=== PATIENT | female | born 1940 | race Caucasian/White ===

== ENCOUNTER 2018-04-06 08:40 | Inpatient (IN) | payer MEDICARE, BC ==
[2018-04-06 09:05] LABS: #Eosinphils 1.3 thou/uL (0.0-0.7); #Lymphocytes 0.6 thou/uL (1.20-3.40); #Monocytes 0.9 thou/uL (0.11-0.59); #Neutrophils 7.2 thou/uL (1.40-6.50); %Basophils 0.3 % (0.0-1.0); %Eosinophils 12.7 % (0.0-10.0); %Lymphocytes 5.6 % (21.0-51.0); %Monocytes 9.2 % (0.0-10.0); %Neutrophils 72.2 % (42.0-75.0); Mean Corpuscular HGB CONC 30.9 g/dL (32.0-36.0); Mean Corpuscular Hemoglobin 31.1 pg (27.0-31.0); Mean Platelet Volume 7.7 fL (7.4-10.4); Platelet Count 261 thou/uL (130-400); RBC Distribution Width 13.9 % (11.5-14.5); Red Blood Cell (RBC) Count 4.18 mill/uL (4.20-5.40); White Blood Cell (WBC) Count 9.9 thou/uL (4.8-10.8)
[2018-04-06] MEDS ORDERED: Dextrose 50% Abboject 50 ML SYRINGE ONE ×2 (09:08→10:55)
[2018-04-06] MEDS ORDERED: Calcium Chloride 1 GM/10 ML Abboject SYRINGE ONE (09:08)
[2018-04-06] MEDS ORDERED: Atropine Sulfate 1 mg/10 ml Syringe ONE (09:08)
[2018-04-06 09:11] LABS: INR-International Normal Ratio 0.9; PTT 24.7 SEC (22.9-36.1); Prothrombin Time 12.6 SEC (12.0-14.7)
[2018-04-06 09:25] LABS: Acetaminophen Less than 6.0 mcg/mL (10.0-30.0); Alcohol Less than 10 mg/dL (Less than 10); Salicylate Less than 8.0 mg/dL (15.0-30.0)
[2018-04-06 09:26] LABS: ALT (SGPT) 25 U/L (8-55); AST (SGOT) 25 U/L (5-34); Alkaline Phosphatase 142 U/L (40-150); Anion Gap 23 mmol/L (10-20); BUN (Urea Nitrogen) 81 mg/dL (9.8-20.1); Bilirubin, Total 0.6 mg/dL (0.2-1.2); CK (CPK) 91 U/L (29-168); Calc. Creatinine Clearance 0 mL/min (70-130); Calcium 8.4 mg/dL (7.8-10.44); Carbon Dioxide 20 mmol/L (23-31); Chloride 98 mmol/L (98-107); Estimated GFR-MDRD 4; Globulin 2.6 g/dL (2.4-3.5); Glucose 67 mg/dL (83-110); Lipase 16 U/L (8-78); Potassium 4.4 mmol/L (3.5-5.1); Protein, Total 5.6 g/dL (6.0-8.3); Sodium 137 mmol/L (136-145)
[2018-04-06] MEDS ORDERED: Naloxone HCl 2 mg/2 ml Syringe ONE (09:32)
[2018-04-06 09:40] LABS: Actual Bicarbonate (HCO3a) 22.4 mEq/L (22-28); Analyzer IN Cardio ER; Base Excess (BEa) -2.8 mEq/L (-2.0 to +3.0); CO2 Tension 40.3 mmHg (35.0-45.0); Calcium, Ionized 1.26 mmol/L (1.12-1.30); Carboxyhemoglobin (COHb) 1.7 gm% (0.0-3.0); Hemoglobin (Hb) 11.7 g/dL (12.0-16.0); O2 Tension (PaO2) 112.9 mmHg (> 70.0); pH, Arterial 7.36 (7.35-7.45)
[2018-04-06 09:41] LABS: ALV-art Gradient 64.885 (0-20); Puncture Site RB
[2018-04-06 09:47] LABS: CKMB 7.3 ng/mL (0-6.6)
[2018-04-06 10:10] LABS: Amphetamine Not Detected (NotDetected); Barbiturates Screen Not Detected (NotDetected); Benzodiazepine Screen Detected (NotDetected); Cocaine Metabolite Screen Not Detected (NotDetected); Medtox Control Line Valid? VALID (VALID); Medtox Reader # READER 4; Methadone Not Detected (NotDetected); Methamphetamine Not Detected (NotDetected); Opiate Screen Not Detected (NotDetected); Oxycodone Screen Not Detected (NotDetected); Phencyclidine (PCP) Not Detected (NotDetected); THC/Cannabinoid Screen Not Detected (NotDetected); Tricyclic Screen Not Detected (NotDetected)
--- NOTE | 2018-04-06 10:29 | CT ---
CT HEAD NONCONTRAST: HISTORY: Altered mental status. COMPARISON: 06/19/2006. FINDINGS: There is no evidence of acute intracranial hemorrhage or infarct. Diffuse cortical atrophy and chron ic ischemic small vessel disease have progressed since the 2006 exam. There is no mass effect or pennie ft of midline structures. Calcification in the arterial structures. Partial mucosal opacification o f the sphenoid sinus with cortical thickening consistent with acute upon chronic sphenoid sinusitis. IMPRESSION: No acute intracranial abnormalities are demonstrated. Findings were called to Dr. Crane in the emergency department by Dr. Larios at 0856 hours. CODE CR POS: [facility]
[2018-04-06] MEDS ORDERED: DOPamine 400 MG/D5W 250 ML 250 ML ONE (10:57)
[2018-04-06] MEDS ORDERED: DOBUTamine 500 mg/250 ml 250 ML ONE (11:00)
[2018-04-06 11:10] LABS: Bilirubin Negative (Negative); Blood, Urine Moderate (Negative); Clarity TURBID (Clear); Glucose, Urine (Dipstick) 250 mg/dL (Negative); Leukocyte Large (Negative); Nitrite Negative (Negative); Protein, Urine (Dipstick) 300 mg/dL (Neg-Trace); Specific Gravity, Urine 1.014 (1.002-1.036); Urobilinogen 0.2 mg/dL (0.2-1.0)
[2018-04-06 11:16] LABS: Squamous Epithelial 0-3 HPF (0-3)
[2018-04-06 11:17] LABS: Pathc Cast-AUWi Flag 9.74 (0-2.49)
--- NOTE | 2018-04-06 11:23 | RAD ---
PORTABLE AP CHEST XRAY: DATE: 04/06/2018. HISTORY: Altered mental status. The patient came in unresponsive per EMS. COMPARISON: 12/25/2011. FINDINGS: Two separate pacing pads overlie the right chest and centrally. Cardiac silhouette is magnified by p rojection but is enlarged. Pulmonary vasculature is within normal limits. Lungs are otherwise clear . Vascular calcification of the thoracic aorta. Vertebroplasty changes are seen involving upper lum bar vertebral body. No other interval change. IMPRESSION: 1. No acute cardiopulmonary process. 2. Cardiomegaly. POS: [facility]
[2018-04-06 11:27] LABS: Bacteria/HPF 4+ HPF (None Seen); Hyaline Casts/LPF NONE SEEN LPF (0-3 Hyaline); Other Casts/LPF None Seen LPF (0-3 Hyaline)
[2018-04-06] MEDS ORDERED: levETIRAcetam 500 MG/100 ML PREMIX BAG ONE (11:48)
[2018-04-06] MEDS ORDERED: Dextrose 5% in Water 1,000 ML IV PRN (12:14)
[2018-04-06] MEDS ORDERED: Acetaminophen 325 MG TAB PO PRN (12:14)
[2018-04-06] MEDS ORDERED: Senokot S 8.6-50 MG TAB PO PRN (12:14)
[2018-04-06] MEDS ORDERED: Dextrose 50% Abboject 50 ML SYRINGE SLOW IVP PRN (12:14)
[2018-04-06] MEDS ORDERED: Acetaminophen 650 MG Suppository PR PRN (12:14)
[2018-04-06] MEDS ORDERED: Guaifenesin DM 100-10/5 ML UDCUP PO PRN (12:14)
--- NOTE | 2018-04-06 13:23 | RAD ---
CHEST 1 VIEW: HISTORY: Central line placement. COMPARISON: Earlier exam on the same date. FINDINGS: The tip of a right internal jugular central venous catheter overlies the cavoatrial junction. No jennifer dence of pneumothorax. Cardiomegaly and other findings are stable. IMPRESSION: Right internal jugular central venous catheter is in good radiographic position. POS: [facility]
[2018-04-06 13:27] LABS: Troponin I 0.072 ng/mL (< 0.028)
--- NOTE | 2018-04-06 14:47 | HP ---
REASON FOR ADMISSION: Severe bradycardia, acute encephalopathy, demand ischemia, possible seizure, and urinary tract infection. HISTORY OF PRESENTING ILLNESS: Please note majority of this history is obtained by talking to the patient's , Mr. Silvestre Khan, as the patient is not conscious at present. She apparently was unresponsive this morning. The thought she slept well after a long time, but then when he tried to wake her up this morning around 8, the patient was not responding well. He summoned EMS, and the patient was brought here. She was found to be bradycardic with heart rates dipping into 40s. The patient initially was on transcutaneous pacer and now has been placed on dobutamine and dopamine. Per , the patient had two large strokes, which affected her cognition and short-term memory with no specific paralysis as such. This happened last month and was diagnosed at [facility]. She was at inpatient rehab for 21 days and was discharged yesterday. At the end of her rehab, the patient was able to walk 8 to 10 steps with a rolling walker. She was helping with transfers as well. The patient did not complain of any chest pain, palpitation, PND, or orthopnea. No complaints of fever, cough, or expectoration. No urinary frequency or urgency yesterday. PAST MEDICAL AND SURGICAL HISTORY: History of paroxysmal atrial fibrillation; end-stage renal disease, on peritoneal dialysis from last one and half years; diabetes mellitus, which is insulin dependent from last 38 years; prior stress test was negative; history of CVA x2 last month; dyslipidemia; hypertension; cataract surgery; hypothyroidism; right femur fracture with repair; kyphoplasty for vertebral fractures; and thyroidectomy. CURRENT MEDICATIONS: 1. Xanax 1 mg p.o. three times daily p.r.n. 2. Norvasc 5 mg daily. 3. Aspirin 81 mg p.o. daily. 4. Coreg 25 mg twice daily. 5. Effexor 37.5 mg extended release daily. 6. Fish oil daily. 7. Gabapentin 300 mg four times daily. 8. Levothyroxine 125 mcg p.o. daily. 9. Multivitamin one tablet once daily. 10. Trazodone 25 mg p.o. q.h.s. 11. Lantus 2 times a day. 12. Ferrous sulfate 150 mg daily. 13. Estradiol vaginal cream once a week. ALLERGIES: TO IODINE AND SHELLFISH. PERSONAL HISTORY: Does not abuse alcohol or drugs. No history of smoking. FAMILY HISTORY: Mother in her 80s. She had coronary artery disease. Father had emphysema and also in his 80s. CODE STATUS: DNR. This was discussed with , Mr. Silvestre Khan, at bedside. REVIEW OF SYSTEMS: Cannot be obtained as the patient is not conscious. PHYSICAL EXAMINATION: GENERAL: The patient is a 78-year-old female who is currently obtunded. VITAL SIGNS: Blood pressure 150/86, pulse 50 per minute, respiratory rate 18 per minute, saturating 98% on 2 L nasal cannula, and temperature 97.7 degrees rectal. NECK: Supple. No elevated JVD. HEENT: Eyes; extraocular muscles intact. Pupils reacting to light. Oral cavity, mucous membranes are dry. No exudates or congestion. CARDIOVASCULAR SYSTEM: S1 and S2 heard. Bradycardic, regular rhythm. RESPIRATORY SYSTEM: Air entry 1+ bilateral, scattered rhonchi plus no rales or wheezes. The patient has a trumpet placed in the right nostril. ABDOMEN: Soft. Bowel sounds heard. No tenderness, rigidity, or guarding. Peritoneal dialysis catheter in place. EXTREMITIES: No peripheral edema or calf tenderness. VASCULAR SYSTEM: Peripheral pulses 1+ bilateral. No ischemic ulcerations or gangrene. CENTRAL NERVOUS SYSTEM: No gross focal signs seen. The patient is currently obtunded and a complete neurologic exam cannot be done. PSYCHIATRIC: Cannot be assessed due to the patient is not conscious at present and is obtunded. LABORATORY DATA: EKG done showed sinus bradycardia at 54 beats per minute. Urine drug screen is positive for benzodiazepines. White count of 9, H and H 13 and 42, platelet count 261, MCV is 101 with 72% neutrophils. PT, INR, PTT within normal limits. Blood gas done shows a pH of 7.36, pCO2 of 40, pO2 of 112, BUN 81, creatinine 10, serum bicarb 20, potassium is 4.4, serum glucose is 67. Liver enzymes are within normal limits. BNP 428. Albumin is 3. TSH 5.6, prolactin is 918. CK-MB 7.3, troponin I 0.07. Ammonia levels are 29. UA shows large leukocyte esterase, greater than 50 wbc's, and 4+ bacteria. CLINICAL IMPRESSION AND PLAN: The patient will be admitted to ICU for symptomatic bradycardia, acute encephalopathy with current obtunded state, likely postictal with elevated prolactin and recent two large cerebrovascular accidents. She also has demand ischemia and urinary tract infection in addition to above. Bar cultures will be obtained and we will obtain EEG stat. Dr. Burkett for Cardiology has been consulted. We will hold her Coreg for now in view of her bradycardia. We will obtain complete medication list from inpatient rehab, where she was recently discharged. She will be on ciprofloxacin for urinary tract infection. We will continue aspirin, fish oil, and Synthroid as before. She will be on Humalog moderate coverage for now, and the patient will be placed on Keppra 500 mg IV twice daily for suspected seizure with elevated prolactin. We will obtain MRI and MR angiogram of the brain as well. We will consult Dr. Casie Lewis for Neurology. Job ID: [id number]
[2018-04-06 14:53] VITALS: BMI 24.2
[2018-04-06 15:13] LABS: Troponin I 0.059 ng/mL (< 0.028)
--- NOTE | 2018-04-06 15:33 | CON ---
DATE OF CONSULTATION: TYPE OF CONSULTATION: Nephrology. REASON FOR CONSULTATION: End-stage renal disease on maintenance peritoneal dialysis. HISTORY OF PRESENT ILLNESS: This is a 78-year-old female, who cannot give any history, presented to the hospital with altered mentation. The patient tolerated dialysis well, done by her . PAST MEDICAL HISTORY: Significant for diabetes mellitus. REVIEW OF SYSTEMS: Unobtainable. ALLERGIES: REVIEWED. HOME MEDICATION LIST: Unavailable. PHYSICAL EXAMINATION: GENERAL: The patient is resting in [id number] distress. VITAL SIGNS: Afebrile, pulse 70, breathing 16, and blood pressure 130/70. GENERAL APPEARANCE AND MENTAL STATUS: Fair. HEAD/NECK: Normocephalic. Atraumatic. EYES: EOMI. No deformity. EARS: Clear. No ulcers. NOSE: Intact. No lesions. MOUTH: Clear. No discharge. THROAT: Clear. No exudate. LUNGS: Clear. No crackles. CARDIAC: S1, S2. No rub. ABDOMEN: Benign. Bowel sounds positive. GENITALIA/RECTUM: Galvez absent. BACK/EXTREMITIES: Edema 0+. NEUROLOGICAL: The patient is comatose. SKIN: LYMPHATICS: LABORATORY DATA: Labs show hemoglobin 13. Potassium is 4.4. ASSESSMENT AND PLAN: Stage 6 chronic kidney disease, plan peritoneal dialysis. Hypertension stable. Anemia stable. Altered mental status, management per primary team. Prognosis is extremely poor. Job ID: [id number]
[2018-04-06] MEDS ORDERED: DOBUTamine 500 mg/250 ml 500 MG in Premix Bag 1 BAG IVPB SCH (15:45)
[2018-04-06] MEDS ORDERED: DOPamine 400 MG/D5W 250 ML 250 ML IVPB SCH (15:45)
--- NOTE | 2018-04-06 16:27 | MRI ---
MRA OF THE [place] OF [place] AND VERTEBRAL BASILAR SYSTEM WITH 3D RECONSTRUCTIONS: Date: 04-06-18 History: Altered mental status. FINDINGS: There is mild motion artifact present on provided images. There is diminished flow related enhancemen t involving the distal bilateral vertebral arteries, but this is a symmetric finding and is most like ly artifactual. The distal vertebral arteries are otherwise codominant and patent bilaterally. The ba silar artery and bilateral cerebral arteries are patent. Prominent posterior communicating artery on the right is present. Bilateral anterior cerebral and middle cerebral arteries appear patent. No foca l stenosis or branch occlusion is identified. No aneurysm is seen within the limitations of the technique of this exam. There is an area of signal hyperintensity seen in the region of the sphenoid sinus. There is mucosal thickening present within t he left sphenoid sinus with thickening of the garza of the left sphenoid sinus on CT examination and findings are likely related to chronic sinus disease. IMPRESSION: 1. No focal stenosis or branch occlusion is seen involving the [place] of [place] or vertebral basilar system. 2. Sinus disease involving the left sphenoid sinus, better visualized on noncontrast CT head. POS: [facility]
[2018-04-06] MEDS ORDERED: Lorazepam 2 MG/ML VIAL SLOW IVP PRN (17:03)
--- NOTE | 2018-04-06 17:06 | MRI ---
NONCONTRAST MRI BRAIN: Date: 04-06-18 History: Altered mental status. Patient presented to the Emergency Department unresponsive. Comparison: CT head, 04-06-18 FINDINGS: There are patchy and confluent areas of increased FLAIR and T2 weighted signal intensity seen through out the periventricular and subcortical white matter as well as increased T2 and FLAIR signal intensi ty seen within the valencia. Findings are overall nonspecific but likely reflective of severe chronic sma ll vessel ischemic changes. There is a linear focus of restricted diffusion seen within the posterior left frontal centrum semiov darren consistent with a small acute white matter infarction. A few punctate areas of increased signal i ntensity are seen on diffusion weighted images within the biparietal lobes adjacent to the region of the atrium of the bilateral ventricles. There is probable restricted diffusion in these regions sugge sting additional small white matter infarctions. There is a small area of restricted diffusion seen w ithin the medial aspect of the left cerebellar hemisphere which also demonstrates mild restricted dif fusion also suggesting an acute infarction. There is no evidence of an acute cortical infarction pres ent. On gradient echo images, there are multifocal subcentimeter low signal intensity blooming artifacts p resent diffusely throughout the cerebral hemispheres and in the left cerebellar hemisphere, and no co rresponding abnormality is seen on the T2 weighted images. These findings are likely attributable to amyloid angiopathy. There is diffuse cerebral and cerebellar volume loss. The ventricular system is normal in size, shape , and position for the degree of sulcal atrophy. Appropriate flow voids are demonstrated at the base of the brain. Mucosal thickening is present within the left sphenoid sinus and there is thickening of the garza of the left sphenoid sinus likely related to chronic sinus disease. Mild mucosal thickening is seen in t he ethmoidal air cells. [place] lenses are not visualized. IMPRESSION: 1. Findings suggestive of embolic phenomenon with small acute infarctions in the left frontal lion radiata, right parietal white matter, as well as in the left cerebellar hemisphere compatible with sm all areas of acute infarction. There is no acute cortical infarction seen. 2. Findings most compatible with amyloid angiopathy. 3. Diffuse cerebral and cerebellar volume loss. 4. Sinus disease. POS: [facility]
[2018-04-06] MEDS: Sodium Chloride 0.45% 1,000 ML IV SCH (17:26)
[2018-04-06] MEDS: Meropenem 2 GM, Admixture Fee 1 EACH in Sodium Chloride 0.9% 100 ML IVPB SCH (17:45)
--- NOTE | 2018-04-06 17:47 | CON ---
DATE OF CONSULTATION: 04/06/2018 SERVICE: Pulmonary Medicine. REASON FOR CONSULT: ICU patient. HISTORY OF PRESENT ILLNESS: The patient is a 78-year-old white female with past medical history significant for end-stage renal disease, requiring peritoneal dialysis. She has been undergoing this at home on a nightly basis. She was in her usual state of health until she recently had a couple of large strokes and was inpatient for 21 days at [facility]. She was discharged to rehabilitation recently. At the rehabilitation center, she was able to walk a few steps with significant assistance. Recently, she transitioned home. When she got home, she went to bed in her usual state of health. In the morning, she could not be woken up. As such, she was subsequently brought back to the Emergency Department. She cannot provide any additional elements of the history. Multiple laboratories and imaging studies have been performed so far. PAST MEDICAL HISTORY: 1. Paroxysmal atrial fibrillation. 2. End-stage renal disease, on peritoneal dialysis. 3. Type 2 diabetes mellitus. 4. History of CVA. 5. Dyslipidemia. 6. Hypertension. 7. Hypothyroidism. PAST SURGICAL HISTORY: 1. Cataract surgery. 2. Kyphoplasty. 3. Right femur fracture repair. 4. Vertebroplasty. FAMILY HISTORY: Noncontributory. SOCIAL HISTORY: Negative for alcohol, tobacco, or illicit drug use. She has no exposure to chemicals, dust, asbestos, or tuberculosis. ALLERGIES: IODINE. MEDICATIONS: List of her inpatient medications was reviewed. No specific updates were made at this time. REVIEW OF SYSTEMS: Cannot be obtained as the patient has encephalopathy presently. PHYSICAL EXAMINATION: VITAL SIGNS: Afebrile, pulse 53, blood pressure 135/57, respirations 14, and saturation 100% on 2 L via the nasal cannula through nasal trumpet. HEENT: Normocephalic and atraumatic. Sclerae white. Conjunctivae pink. Oral mucosa is moist and without lesions. LUNGS: Decent air entry. There is no prolonged expiratory phase or wheezing. HEART: Normal rate, regular. ABDOMEN: Soft. No tenderness to palpation. I do not appreciate rebound or guarding. Bowel sounds are hypoactive. GENITOURINARY: Galvez catheter in place with very purulent sediment. MUSCULOSKELETAL: No cyanosis or clubbing. There is no pitting in the bilateral lower extremities. NEUROLOGIC: Pupils are equal, round, and reactive to light. She does attend with significant stimulation. I witnessed the shaking spell that had an intermittent contraction followed by relaxation, which was very quick. It was predominantly displayed in the right upper extremity, but seemed to go into the left upper extremity as well. She withdraws from noxious stimuli in a left lower extremity. She did not withdraw from noxious stimuli in the right lower extremity. Babinski are neutral. She withdraws from noxious stimuli in the bilateral upper extremities. She is breathing comfortably. She demonstrates a cough. LABORATORY DATA: WBC 9.9, hemoglobin 13.0, and platelets 261,000. Neutrophils are 72%. Eosinophil level is 12.7%. INR 0.9. A pH of 7.36, pCO2 of 40, and pO2 of 112. Creatinine 10.08, BUN 80, anion gap 23, bicarb 20. Basic metabolic profile and liver function studies are otherwise unremarkable. BNP 428, which is in historic high. TSH 5.7 and prolactin 918. Lactate is unremarkable. Urinalysis is positive for polyuria and leukocyte esterase. Nitrites are negative, but there is 4+ bacteria. Benzodiazepines are positive on the urine drug screen. Alcohol, acetaminophen, and salicylates are negative. IMAGIN. MRA of the head demonstrates no significant stenoses. 2. Chest x-ray demonstrates a right IJ that terminates in the right atrium. Otherwise, I do not see any acute lung issues. Cardiac silhouette is generous on this portable film. There are no overt consolidating changes. There is no significant pulmonary vascular congestion. 3. CT of the brain demonstrates no acute intracranial abnormality. Sinusitis is a possibility here. ASSESSMENT: 1. Severe sepsis. 2. Urinary tract infection, suspected. 3. Sinusitis. 4. Bradyarrhythmia. 5. Status epilepticus, suspected. 6. Hypothyroidism. 7. End-stage renal disease. 8. Hypereosinophilia. 9. Hypoglycemia. DISCUSSION AND PLAN: It is truly not clear what is going on. I do believe we are dealing with a seizure issue. She has already been loaded with Keppra. We are going to need to give her some Ativan in order to calmed down these movement changes. We are going to schedule steroids q.6 hours for the elevated eosinophils. This will be continued. The patient basically had vitor pyuria. As such, a sample is going to be sent off. When we connect to peritoneal dialysis, we will send some peritoneal fluid for evaluation as well. I agree with empiric antibiotics. I will check a free T3 and a free T4 level. Repeat a prolactin level in the morning to make certain that this is going down. I will add a magnesium phosphorus to morning laboratories. Otherwise, supportive care is going to be continued. Cardiology has put the patient on both dopamine, and dobutamine in order to facilitate cardiac output and maintain a heart rate in the 50s. Meropenem will be initiated and all centrally acting medications will be interrupted. Pulmonary/Critical Care will continue to follow very closely during this hospital stay. 70 minutes have been devoted to this patient in various activities. I personally reviewed all imaging studies and laboratory data noted within this document. For fifty percent of this time, I was interacting with the patient at the bedside or coordinating care with the care team. For the remainder of the time I was immediately available to the patient in the hospital unit. Job ID: [id number] [id number]
[2018-04-06] MEDS ORDERED: HEPARIN FS SCH (18:00)
[2018-04-06] MEDS ORDERED: DIANEAL FS SCH (18:00)
--- NOTE | 2018-04-06 18:50 | CON ---
DATE OF CONSULTATION: REASON FOR CONSULTATION: Bradycardia. HISTORY OF PRESENT ILLNESS: Ms. Rivers is a unfortunate 78-year-old woman with a history of end-stage renal disease. According to her , she had a very large stroke while at [facility]. She received a blood transfusion for her chronic anemia and while she was there for history, she had a stroke. He states she was in rehab and recently came home. He then states he found her unresponsive. He was unsure whether there were any focal neurologic deficits. EMS was summoned. She was seen and evaluated in the emergency room by myself. The patient initially had a heart rate in the 20s to 30s. She was placed on external pacing with EMS. Upon arrival to the ER, heart rate was in the 40s. She did respond to atropine. Her rhythm appeared to be a narrow complex. She was also found to be in sinus. PAST MEDICAL HISTORY: Paroxysmal atrial fibrillation, diabetes mellitus, previous CVA, hyperlipidemia, hypertension, hypothyroidism, diabetes mellitus. PAST SURGICAL HISTORY: Kyphoplasty, femoral fracture repair, vertebroplasty, cataract surgery. SOCIAL HISTORY: No current tobacco or alcohol use. ALLERGIES: IODINE. REVIEW OF SYSTEMS: Not obtainable. She is currently obtunded. PHYSICAL EXAMINATION: VITAL SIGNS: Blood pressure 134/54, pulse 77, temperature afebrile. GENERAL: She is currently obtunded. She does have difficulty opening up her eyes to command. She does follow commands, moving her right and left hand and lower extremities, but appears markedly weak. NEUROLOGIC: The patient is alert and oriented x3 with no focal neurologic deficits. HEENT: Sclerae without icterus. Mouth has moist mucous membranes with normal pallor. NECK: No JVD. Carotid upstroke brisk. No bruits bilaterally. LUNGS: Clear to auscultation with unlabored respirations. BACK: No scoliosis or kyphosis. CARDIAC: Regular rate and rhythm with normal S1 and S2. No S3 or S4 noted. No significant rubs, murmurs, thrills, or gallops noted throughout the precordium. PMI is not displaced. There is no parasternal heave. ABDOMEN: Soft, nontender, nondistended. No peritoneal signs present. No hepatosplenomegaly. No abnormal striae. EXTREMITIES: 2+ femoral and 2+ dorsalis pedis pulses. No cyanosis, clubbing, or edema. SKIN: No gross abnormalities. PERTINENT LABORATORY DATA: Hemoglobin 13.0. Peak troponin 0.072 and it is downtrending. Creatinine 10.08, CO2 is 20, CK-MB is 7.3. EKG shows sinus bradycardia with a narrow complex. IMPRESSION: 1. Bradycardia. 2. Mental status changes. 3. End-stage renal disease. 4. Paroxysmal atrial fibrillation. RECOMMENDATIONS: At this point, I would recommend adding dopamine and dobutamine. She has a narrow complex and did respond to atropine. She will likely respond to dopamine and dobutamine. At this point, I do not feel a temporary pacemaker is indicated. I would like to further assess why she is currently obtunded. MRI report is currently pending. She was seen and evaluated in the emergency room. The wishes for no heroic means or measures. I did spend 40 minutes of critical care time at the patient's bedside assessing the patient's status. Job ID: [id number]
[2018-04-06 19:40] LABS: Body Fluid Source PERITONEAL FLUID
[2018-04-06 19:41] LABS: BF Color Colorless; Clarity Clear (Clear); Tube # EDTA
[2018-04-06 19:45] LABS: BF RBC Count - Manual 0 /cumm; BF WBC/Nonhematics Ct. - Manua 0 /cumm
[2018-04-06] MEDS ORDERED: Ciprofloxacin Lactate/D5W 200 MG in Premix Bag 1 BAG IVPB SCH (21:00)
[2018-04-06] MEDS: Valproate Sodium 500 MG in Sodium Chloride 0.9% 100 ML IVPB SCH (21:12)
[2018-04-06] MEDS: Docusate 100 MG CAP PO SCH (21:42)
[2018-04-06] MEDS: Fish Oil 1,000 MG CAP PO SCH (21:42)
[2018-04-06] MEDS: HumaLOG 300 UNITS/3 ML VIAL SC PRN (23:18)
[2018-04-07] MEDS: Meropenem 2 GM, Admixture Fee 1 EACH in Sodium Chloride 0.9% 100 ML IVPB SCH (01:22)
[2018-04-07] MEDS: Levothyroxine 150 MCG TAB PO SCH (05:04)
--- NOTE | 2018-04-07 05:27 | CON ---
DATE OF CONSULTATION: CHIEF COMPLAINT: Seizures. HISTORY OF PRESENT ILLNESS: The patient is being admitted to the ICU today with unresponsiveness. The patient was recently admitted for stroke a month ago and was discharged to rehab, was in rehab for 21 days. She got home at yesterday and they have not been able to get her up to walking yet. She spoke to both the new caregivers and , had dinner, went to bed at the normal time. This morning , they disconnected from her peritoneal dialysis and then they were trying to wake her up, but she has become nonresponsive. called EMS immediately. EMS also could not wake her up and has had some episodes since early March, where there was an episode of possible seizure and she had 2 recent small strokes. The patient has been quite sick and she has had diabetes for 38 years and has attendant complications from diabetes. PAST MEDICAL HISTORY: The patient has paroxysmal atrial fibrillation, end-stage renal disease on peritoneal dialysis for the last 1-1/2 years, diabetes and has been insulin dependent for the last 38 years. Prior stress test was negative. She has history of CVA as discussed earlier for two strokes in the past month. She has hyperlipidemia, hypertension, and hypothyroidism. PAST SURGICAL HISTORY: Cataract surgery, kyphoplasty for vertebral fracture, thyroidectomy, right femur fracture repair, and peritoneal dialysis catheter implantation. MEDICATIONS: At home, she takes: 1. Xanax. 2. Norvasc. 3. Aspirin. 4. Coreg. 5. Effexor. 6. Fish oil. 7. Gabapentin. 8. Levothyroxine. 9. Multivitamin. 10. Trazodone. 11. Lantus insulin. 12. Ferrous sulfate. 13. Estradiol. ALLERGIES: SHE IS ALLERGIC TO IODINE AND SHELLFISH. FAMILY HISTORY: Mother in her 80s, had coronary artery disease. Father had emphysema and in his 80s. Brother is in his mid 80s now, but had a CVA. No seizures in the family. REVIEW OF SYSTEMS: Unobtainable. LABORATORY DATA: Current laboratory workup: White count 9.9, hemoglobin 13, hematocrit 42, platelet count 261. Chemistry; sodium 137, potassium 4.4, chloride 98, bicarb 20, BUN 81, anion gap 23, creatinine 10.08, and glucose 67. BNP 428.4. TSH 5.6. Prolactin level is 918. Her glucose level has improved later on to 256 , and troponin levels have been high, 0.079, 0.072, 0.059. CK-MB 7.3. MR angiogram, she has no evidence of focal stenosis or branch occlusion and she has sinus disease on the MR angio and her MRI of the brain showed acute infarcts in the left frontal lion radiata, right parietal white matter, small focus in the left cerebellar hemisphere and she also has multiple FLAIR and T2 weighted signal throughout the periventricular subcortical white matter and within the valencia, likely reflective of severe chronic small-vessel ischemic disease. There is also restricted diffusion in the medial aspect of left cerebellar hemisphere and she has findings most compatible with amyloid angiopathy and diffuse cerebral and cerebellar volume loss and her chest x-ray was reviewed, and she has right IJ catheter in good radiographic position, no pneumothorax, and chest x-ray here shows no acute cardiopulmonary process. PHYSICAL EXAMINATION: VITAL SIGNS: Blood pressure 135/57, pulse 53, and temperature 97.7. GENERAL APPEARANCE: She is not intubated, trying to breathe, has a nasal cannula in place. CHEST: Clear vesicular breathing. CARDIOVASCULAR: S1 and S2. No murmurs. ABDOMEN: Nontender. NEUROLOGIC: She is sort of awake, tries to wake up and she closes her eyes again. She tries to make an effort when following commands. Cranial nerves, pupils are 3 mm, reactive bilaterally. No facial asymmetry noted and difficult to evaluate tongue or oral cavity due to the patient's lack of effort. On motor exam, tone is increased throughout. Strength 3/5 with reduced effort bilaterally and she has decreased reflexes and involuntary movements. She has myoclonic activity intermittently noted in the chin area, but also myoclonus in the extremities. IMPRESSION: The patient with multiple medical problems and she was brought in with history of unresponsiveness. She has end-stage renal disease, diabetes, and she has 91% O2 sats. Given in the ER, she was bradycardic in the 50s and pacing was began by EMS at 70. Blood glucose was 87 at the time EMS saw her, and she remained unresponsive and serum prolactin was obtained, but her prolactin levels are very highly elevated. The question is whether she had persistent seizures and she is postictal. At this time, MRI also shows multiple 3 areas of new strokes, likely embolic in nature. This is just likely due to the cardiac event. At this time, difficult to assess why the patient remains unresponsive, but she also has myoclonus on exam, which is reflective of underlying metabolic disturbance. Likely contributors to unresponsiveness are presence of low glucose levels plus hypoxia possibly plus seizures and bradycardia and all contributing to her altered mental status. TREATMENT PLAN: I would like to add the sodium valproate in addition to Keppra to help with myoclonus as well as seizures. She has completed echocardiogram to look for embolic source such as a thrombus in the atrium or this could be purely due to changes in her heart rate. Neurology will continue to follow this patient. Job ID: [id number] MTDD
[2018-04-07] MEDS: HumaLOG 300 UNITS/3 ML VIAL SC PRN ×3 (05:48→12:04)
[2018-04-07 06:13] LABS: #Lymphocytes 0.4 thou/uL (1.20-3.40); #Neutrophils 5.5 thou/uL (1.40-6.50); %Basophils 0.1 % (0.0-1.0); %Eosinophils 0.2 % (0.0-10.0); %Lymphocytes 5.9 % (21.0-51.0); %Monocytes 0.3 % (0.0-10.0); %Neutrophils 93.5 % (42.0-75.0); Hemoglobin 13.1 g/dL (12.0-16.0); Mean Corpuscular HGB CONC 30.5 g/dL (32.0-36.0); Mean Corpuscular Hemoglobin 31.3 pg (27.0-31.0); Platelet Count 231 thou/uL (130-400); RBC Distribution Width 13.9 % (11.5-14.5); Red Blood Cell (RBC) Count 4.19 mill/uL (4.20-5.40); White Blood Cell (WBC) Count 5.9 thou/uL (4.8-10.8)
[2018-04-07 06:31] LABS: Phosphorus 8.4 mg/dL (2.3-4.7)
[2018-04-07 06:32] LABS: Anion Gap 23 mmol/L (10-20); BUN (Urea Nitrogen) 70 mg/dL (9.8-20.1); Calc. Creatinine Clearance 5 mL/min (70-130); Calcium 8.7 mg/dL (7.8-10.44); Carbon Dioxide 20 mmol/L (23-31); Chloride 95 mmol/L (98-107); Estimated GFR-MDRD 4; Magnesium 2.1 mg/dL (1.6-2.6); Potassium 4.4 mmol/L (3.5-5.1); Sodium 134 mmol/L (136-145)
[2018-04-07 06:39] LABS: Glucose 598 mg/dL (83-110)
[2018-04-07 06:52] LABS: Free T4 (Free Thyroxine) 1.07 ng/dL (0.70-1.48)
[2018-04-07] MEDS ORDERED: Insulin Glargine 30 UNITS in Pre-Filled Syringe 1 EACH SC SCH (07:13)
[2018-04-07] MEDS ORDERED: MEROPENEM IVPB PRN (07:16)
[2018-04-07] MEDS ORDERED: NACL IVPB SCH ×2 (08:00)
[2018-04-07] MEDS ORDERED: ADMIXTURE FEE CHEMO IVPB SCH ×2 (08:00)
[2018-04-07] MEDS ORDERED: LEVETIRACETAM IVPB SCH ×2 (08:00)
[2018-04-07] MEDS: Famotidine/PF 20 mg/2ml Vial SLOW IVP SCH (08:30)
[2018-04-07] MEDS: Enoxaparin Sodium 30 MG/0.3 ML SYRINGE SC SCH (08:32)
[2018-04-07] MEDS: Aspirin 300 MG Suppository PR SCH (08:32)
[2018-04-07] MEDS: Fish Oil 1,000 MG CAP PO SCH ×2 (08:33→22:02)
[2018-04-07] MEDS: Docusate 100 MG CAP PO SCH ×2 (08:33→22:01)
[2018-04-07] MEDS: Valproate Sodium 500 MG in Sodium Chloride 0.9% 100 ML IVPB SCH (08:33)
[2018-04-07] MEDS ORDERED: Famotidine 20 MG TAB PO SCH (09:00)
--- NOTE | 2018-04-07 10:14 | PRG ---
DATE OF SERVICE: 04/07/2018 SUBJECTIVE: A 78-year-old female, being seen for end-stage renal disease, the patient is resting. OBJECTIVE: VITAL SIGNS: Afebrile, pulse 80, breathing 16, blood pressure 142/60. Awake, alert, in no acute distress. GENERAL APPEARANCE AND MENTAL STATUS: Fair. HEAD/NECK: Normocephalic. Atraumatic. EYES: EOMI. No deformity. EARS: Clear. No ulcers. NOSE: Intact. No lesions. MOUTH: Clear. No discharge. THROAT: Clear. No exudate. LUNGS: Clear. No crackles. CARDIAC: S1, S2. No rub. ABDOMEN: Benign. Bowel sounds positive. GENITALIA/RECTUM: Galvez absent. BACK/EXTREMITIES: Edema 0+. NEUROLOGICAL: Alert and motor intact. SKIN: LYMPHATICS: LABORATORY DATA: Labs show potassium 4.4, creatinine 9.15. ASSESSMENT AND RECOMMENDATIONS: 1. Stage 6 chronic kidney disease, continue hemodialysis. 2. Hypertension, stable. 3. Anemia, stable. 4. Hyperglycemia, management per Primary Team. Job ID: [id number]
--- NOTE | 2018-04-07 10:30 | PRG ---
DATE OF SERVICE: 04/07/2018 SUBJECTIVE: Ms. Rivers remains in the CCU. This morning, she is arousable. She will answer questions, but does not spontaneously conversant. Her was at the bedside and I had an opportunity to talk to him significantly about her situation. OBJECTIVE: VITAL SIGNS: Temperature is 99.9, pulse 72, blood pressure 142/62, and O2 saturation 99% on nasal cannula. HEENT: Both pupils are reactive. Sclerae are anicteric. Oropharynx clear. NECK: No adenopathy or JVD. LUNGS: Coarse rhonchi bilaterally. CARDIOVASCULAR: S1 and S2. Regular. ABDOMEN: Soft and nontender. EXTREMITIES: No edema. She moves all 4 extremities spontaneously. NEUROLOGIC: She has a gag and answers simple questions appropriately. LABORATORY DATA: Sodium 134, potassium 4.4, chloride 95, CO2 of 20, BUN 70, creatinine 9.1, and glucose 429. White blood cell count 5.9, hematocrit 43, and platelet count 231. ASSESSMENT: 1. Status post probable seizure episode. 2. Embolic strokes. 3. Chronic renal failure. PLAN: 1. I would leave her in CCU another 24 hours. 2. We need to take measures to control her glucose. 3. Continue the meropenem for the time being. 4. The dobutamine and dopamine have been weaned off. 5. Neurology is seeing her for the seizures. So far, she has not had any further seizure episodes since being loaded with anticonvulsants. 6. Her steroids have been weaned appropriately. 7. Discussed plan with . He will need to have Case Management involved for placement purposes. Job ID: [id number]
[2018-04-07] MEDS: Sodium Chloride 0.45% 1,000 ML IV SCH (12:07)
--- NOTE | 2018-04-07 12:33 | PDOC.PN ---
- Subjective Encounter Start Date: 04/07/18 Encounter Start Time: 11:15 Subjective: awakens easily -: is seen moving all extremities but very weak/shaking -: no obvious seizures noted - Objective Resuscitation Status - Order Detail: 04/06/18 11:53 Resuscitation Status Routine Resuscitation Status: DNAR: NO Resuscitation Discussed with: d/w POA at bedside MAR Reviewed: Yes Vital Signs & Weight: Vital Signs (12 hours) Temp Pulse Ox 04/07/18 07:40 99 04/07/18 03:00 98.7 F Weight Admit Weight 2.328 oz Weight 145 lb 8.081 oz Most Recent Monitor Data Heart Rate from ECG 67 NIBP 160/70 NIBP BP-Mean 100 Respiration from ECG 15 SpO2 99 I&O: 04/06/18 04/07/18 04/08/18 06:59 06:59 06:59 Intake Total 1313.6 200 Output Total 203 95 Balance 1110.6 105 Result Diagrams: 04/07/18 06:09 04/07/18 06:09 Additional Labs: Accuchecks 04/07/18 04/07/18 04/07/18 12:02 07:07 06:26 POC Glucose 206 H 429 H 495 H 04/07/18 04/06/18 04/06/18 05:48 23:17 17:40 POC Glucose Greater than 550 H* 296 H 115 H 04/06/18 04/06/18 12:54 10:53 POC Glucose 256 H 69 L Phys Exam - Physical Examination HEENT: PERRLA, moist MMs Neck: no JVD, supple Respiratory: no wheezing, no rales Cardiovascular: RRR, no significant murmur Gastrointestinal: soft, non-tender, positive bowel sounds Musculoskeletal: no edema, pulses present Neurological: non-focal, moves all 4 limbs Dx/Plan (1) Acute CVA (cerebrovascular accident) Code(s): I63.9 - CEREBRAL INFARCTION, UNSPECIFIED Status: Acute Comment: embolic cva (2) Bradycardia Code(s): R00.1 - BRADYCARDIA, UNSPECIFIED Status: Resolved Comment: off dopamine and dobutamine (3) Seizure Code(s): R56.9 - UNSPECIFIED CONVULSIONS Status: Suspected (4) ESRD (end stage renal disease) on dialysis Code(s): N18.6 - END STAGE RENAL DISEASE; Z99.2 - DEPENDENCE ON RENAL DIALYSIS Status: Chronic Comment: on PD (5) Cerebral amyloid angiopathy Code(s): E85.4 - ORGAN-LIMITED AMYLOIDOSIS; I68.0 - CEREBRAL AMYLOID ANGIOPATHY Status: Suspected Comment: based on imaging (6) DM type 2 (diabetes mellitus, type 2) Status: Chronic Qualifiers: Diabetes mellitus fci insulin use: with fci use Diabetes mellitus complication status: with kidney complications Diabetes mellitus complication detail: with chronic kidney disease Chronic kidney disease stage : on chronic dialysis Qualified Code(s): E11.22 - Type 2 diabetes mellitus with diabetic chronic kidney disease; N18.6 - End stage renal disease; Z79.4 - long-term (current) use of insulin; Z99.2 - Dependence on renal dialysis (7) HTN (hypertension) Code(s): I10 - ESSENTIAL (PRIMARY) HYPERTENSION Status: Chronic Qualifiers: Hypertension type: essential hypertension Qualified Code(s): I10 - Essential (primary) hypertension (8) Dyslipidemia Code(s): E78.5 - HYPERLIPIDEMIA, UNSPECIFIED Status: Chronic (9) UTI (urinary tract infection) Status: Acute Qualifiers: Urinary tract infection type: acute cystitis Hematuria presence: without hematuria Qualified Code(s): N30.00 - Acute cystitis without hematuria - Plan is getting PD at night, start heparin cva protocol -: MRI reveals embolic cva in left frontal, right parietal and left cerebellar -: MRI suspicious for amyloid angiopathy -: lantus 30ux1 then 15 u bid -: on meropenem, keppra, depakote * . Review of Systems - Medications/Allergies Allergies/Adverse Reactions: Allergies Allergy/AdvReac Type Severity Reaction Status Date / Time iodine Allergy Verified 04/04/13 14:26 shellfish derived Allergy Verified 04/04/13 14:26 Medications: Current Medications Acetaminophen (Tylenol) 650 mg PO Q4H PRN PRN Reason: Headache/Fever/Mild Pain (1-3) Acetaminophen (Tylenol) 650 mg KS Q4H PRN PRN Reason: Headache/Fever/Mild Pain (1-3) Aspirin (Aspirin) 300 mg KS DAILY [facility] A Last Admin: 04/07/18 08:32 Dose: 300 mg Dextrose/Water (Dextrose 50%) 25 gm SLOW IVP PRN PRN PRN Reason: Hypoglycemia Docusate Sodium (Colace) 100 mg PO BID [facility] Last Admin: 04/07/18 08:33 Dose: Not Given Enoxaparin Sodium (Lovenox) 30 mg SC 0900 [facility] Last Admin: 04/07/18 08:32 Dose: 30 mg Famotidine (Pepcid) 20 mg SLOW IVP DAILY [facility] Last Admin: 04/07/18 08:30 Dose: 20 mg Fish Oil (Fish Oil) 1,000 mg PO BID [facility] Last Admin: 04/07/18 08:33 Dose: Not Given Glucagon (Glucagon) 1 mg IM PRN PRN PRN Reason: Hypoglycemia Dextrose/Water (D5w) 1,000 mls @ 0 mls/hr IV .Q0M PRN PRN Reason: Hypoglycemia Dobutamine HCl/Dextrose 500 mg (/ Device) 250 mls @ 0 mls/hr IVPB INF [facility]; Protocol Dopamine HCl/Dextrose (Dopamine/D5w) 250 mls @ 0 mls/hr IVPB INF [facility]; Protocol Sodium Chloride (1/2 Normal Saline) 1,000 mls @ 50 mls/hr IV .Q20H [facility] Last Admin: 04/07/18 12:07 Dose: 1,000 mls Valproic Acid 500 mg/ Sodium (Chloride) 105 mls @ 100 mls/hr IVPB BID [facility] Last Admin: 04/07/18 08:33 Dose: 105 mls Insulin Glargine 15 units/ (Miscellaneous Medication) 0.15 mls @ 0 mls/hr SC BID [facility] Meropenem 1 gm/ Device 50 mls @ 100 mls/hr IVPB 0800 [facility] Levetiracetam 250 mg/ Sodium (Chloride) 102.5 mls @ 205 mls/hr IVPB 0800,2000 [facility] Last Admin: 04/07/18 08:35 Dose: 102.5 mls Heparin Sodium/Dextrose (Heparin 25,000 Units/D5w 500 Ml) 500 mls @ 0 mls/hr IVPB INF [facility]; Protocol Insulin Human Lispro (Humalog) 0 units SC .MODERATE SLIDING SC PRN PRN Reason: Moderate [employer] Last Admin: 04/07/18 12:04 Dose: 4 unit Levothyroxine Sodium (Synthroid) 150 mcg PO 0600 [facility] Last Admin: 04/07/18 05:04 Dose: Not Given Lorazepam (Ativan) 2 mg SLOW IVP Q15MIN PRN PRN Reason: Seizures Methylprednisolone Sodium Succinate (Solu-Medrol) 40 mg IVP DAILY [facility] Miscellaneous Medication (Pharmacy To Dose) 1 each IVPB PRN PRN PRN Reason: Pharmacy to dose Senna/Docusate Sodium (Senokot S) 2 tab PO BID PRN PRN Reason: Constipation Sodium Chloride (Flush - Normal Saline) 10 ml IVF PRN PRN PRN Reason: Saline Flush
[2018-04-07 12:53] LABS: Hemoglobin 11.6 g/dL (12.0-16.0); Platelet Count 219 thou/uL (130-400)
[2018-04-07] MEDS: Heparin 25,000 units/D5W 500 ML IVPB SCH (13:52)
[2018-04-07] MEDS ORDERED: levETIRAcetam In NaCl (Iso-Os) 1,000 MG in Premix Bag 1 BAG IVPB SCH (14:00)
--- NOTE | 2018-04-07 17:03 | PDOC.CTH ---
Cardiology Progress Note - Subjective No new issues. Remains confused. - Objective Vital Signs Pulse Ox 04/07/18 07:40 99 Admit Weight 145 lb Weight 145 lb 8.081 oz 04/06/18 04/07/18 04/08/18 06:59 06:59 06:59 Intake Total 1313.6 300 Output Total 203 115 Balance 1110.6 185 - Physical Examination General/Neuro: NAD Neck: no JVD present Lungs: unlabored respirations Heart: RRR Abdomen: NT/ND Extremities: other: (no edema) - Telemetry Telemetry Rhythm: nsr - Labs Result Diagrams: 04/07/18 12:44 04/07/18 06:09 Troponin/CKMB CK-MB (CK-2) 7.3 ng/mL (0-6.6) H* 04/06/18 08:49 Troponin I 0.059 ng/mL (< 0.028) H 04/06/18 14:42 - Assessment/Plan 1. Bradycardia. Resolved. 2. Altered mental status 3. Possible seizure. 4. Paroxysmal afib 5. ESRD. 6. 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 - Continue supportive care for now. - Off innotropes now.
[2018-04-07] MEDS ORDERED: HEPARIN FS SCH (17:15)
[2018-04-07] MEDS ORDERED: DIANEAL FS SCH (17:15)
[2018-04-07] MEDS: Insulin Glargine 15 UNITS in Pre-Filled Syringe 1 EACH SC SCH (20:08)
[2018-04-08 03:17] LABS: Cardiac Risk 2.3 (Less than 4.5); Cholesterol 147 mg/dl (< 200 Desired); HDL Cholesterol 64 mg/dL (>60 Neg Risk); LDL Cholesterol, Calculated 68 mg/dL; Phosphorus 8.5 mg/dL (2.3-4.7); Triglycerides 76 mg/dL (Less than 150)
[2018-04-08] MEDS: HumaLOG 300 UNITS/3 ML VIAL SC PRN (05:53)
[2018-04-08] MEDS: Levothyroxine 150 MCG TAB PO SCH (05:59)
[2018-04-08] MEDS: MEROPENEM 1 GM/50 ML 1 GM in Premix Bag 1 BAG IVPB SCH (07:44)
[2018-04-08] MEDS: Enoxaparin Sodium 30 MG/0.3 ML SYRINGE SC SCH (08:32)
[2018-04-08] MEDS: Aspirin 300 MG Suppository PR SCH (08:33)
[2018-04-08] MEDS: Famotidine/PF 20 mg/2ml Vial SLOW IVP SCH (08:33)
[2018-04-08] MEDS: Insulin Glargine 15 UNITS in Pre-Filled Syringe 1 EACH SC SCH (08:33)
[2018-04-08] MEDS: Docusate 100 MG CAP PO SCH (08:34)
[2018-04-08] MEDS: Fish Oil 1,000 MG CAP PO SCH (08:34)
--- NOTE | 2018-04-08 10:10 | PRG ---
DATE OF SERVICE: 04/08/2018 SUBJECTIVE: Deborah Rivers is a 78-year-old female. This morning, she is awake, alert, responsive. OBJECTIVE: VITAL SIGNS: Pulse 61, blood pressure 142/69, saturations 90% on 2 L, respiratory rate 20. GENERAL: She is awake, moves all four extremities. She is on IV heparin drip for embolic CVA. at the bedside states that she has had two CVAs in March. She sees a Angi physician. She has enterococcus in the urine, which is sensitive to pretty much all the antibiotics. CHEST: Otherwise decreased breath sounds. Bilateral rhonchi. CARDIAC: Normal S1, S2. No gallops. ABDOMEN: Soft without any mass. IMPRESSION: 1. Bradycardia, improved. 2. Atrial fibrillation. 3. Renal failure. 4. Cerebrovascular accident. 5. Severe deconditioning. 6. DNR. PLAN: She is on meropenem, steroids, Keppra, IV heparin. She is a DNI. She can probably transferred out okay with Cardiology. Job ID: [id number]
--- NOTE | 2018-04-08 11:07 | PDOC.PN ---
- Subjective Encounter Start Date: 04/08/18 Encounter Start Time: 11:05 Ms. Rivers was seen today in follow-up of acute CVA and metabolic encephalopathy. She is awake and alert. She is less confused. She believes it is March ( it is April 08, and that it is 2017). She thinks she is in a pharmacy. - Objective Resuscitation Status - Order Detail: 04/06/18 11:53 Resuscitation Status Routine Resuscitation Status: DNAR: NO Resuscitation Discussed with: d/w POA at bedside MAR Reviewed: Yes Vital Signs & Weight: Vital Signs (12 hours) Temp Pulse Ox 04/08/18 08:00 98.3 F 98 04/08/18 06:00 99 Weight Admit Weight 145 lb Weight 145 lb 8.081 oz Most Recent Monitor Data Heart Rate from ECG 62 NIBP 149/68 NIBP BP-Mean 95 Respiration from ECG 14 SpO2 98 I&O: 04/07/18 04/08/18 04/09/18 06:59 06:59 06:59 Intake Total 1313.6 1218.2 350 Output Total 203 194 5 Balance 1110.6 1024.2 345 Result Diagrams: 04/07/18 12:44 04/07/18 06:09 Additional Labs: Accuchecks 04/08/18 04/07/18 04/07/18 05:53 20:03 17:25 POC Glucose 271 H 245 H 109 04/07/18 12:02 POC Glucose 206 H Phys Exam - Physical Examination HEENT: PERRLA, sclera anicteric Respiratory: no wheezing, no rales, no rhonchi, clear to auscultation bilateral Cardiovascular: RRR, no significant murmur, no rub Gastrointestinal: soft, non-tender, no distention, positive bowel sounds Musculoskeletal: pulses present, edema present race pedal edema Neurological: moves all 4 limbs Deviation from normal: oriented to person Dx/Plan (1) Acute CVA (cerebrovascular accident) Code(s): I63.9 - CEREBRAL INFARCTION, UNSPECIFIED Status: Acute Comment: embolic cva (2) Metabolic encephalopathy Code(s): G93.41 - METABOLIC ENCEPHALOPATHY Status: Acute (3) DM type 2 (diabetes mellitus, type 2) Status: Chronic Qualifiers: Diabetes mellitus detention insulin use: with detention use Diabetes mellitus complication status: with kidney complications Diabetes mellitus complication detail: with chronic kidney disease Chronic kidney disease stage : on chronic dialysis Qualified Code(s): E11.22 - Type 2 diabetes mellitus with diabetic chronic kidney disease; N18.6 - End stage renal disease; Z79.4 - FDC (current) use of insulin; Z99.2 - Dependence on renal dialysis (4) ESRD (end stage renal disease) on dialysis Code(s): N18.6 - END STAGE RENAL DISEASE; Z99.2 - DEPENDENCE ON RENAL DIALYSIS Status: Chronic Comment: on PD (5) HTN (hypertension) Code(s): I10 - ESSENTIAL (PRIMARY) HYPERTENSION Status: Chronic Qualifiers: Hypertension type: essential hypertension Qualified Code(s): I10 - Essential (primary) hypertension (6) Cerebral amyloid angiopathy Code(s): E85.4 - ORGAN-LIMITED AMYLOIDOSIS; I68.0 - CEREBRAL AMYLOID ANGIOPATHY Status: Suspected Comment: based on imaging (7) Bradycardia Code(s): R00.1 - BRADYCARDIA, UNSPECIFIED Status: Resolved Comment: off dopamine and dobutamine - Plan * Acute CVA- MRI results noted- she was noted to have multiple infarcts which appear to be embolic in nature * She is currently on a Heparin drip, and will need to be transitioned to an oral medication. * Metabolic Encephalopathy- improving- Possible acute seizure- She is stable on Keppra * Bradycardia- she has been weaned off Dopamine and Dobuatmine- her heart rate is stable * She can be transitioned out of the ICU * DM- blood glucose is slightly elevated- will decrease the dose of steroids * HTN- blood pressure is slightly elevated- will monitor, and adjust medications as needed * ESRD- on PD- plan is to possible transition to HD.
--- NOTE | 2018-04-08 11:16 | PDOC.CTH ---
Cardiology Progress Note - Subjective Mentation better. More awake and alert. - Objective Vital Signs Temp Pulse Ox 04/08/18 08:00 98.3 F 98 04/08/18 06:00 99 Admit Weight 145 lb Weight 145 lb 8.081 oz 04/07/18 04/08/18 04/09/18 06:59 06:59 06:59 Intake Total 1313.6 1218.2 350 Output Total 203 194 5 Balance 1110.6 1024.2 345 - Physical Examination General/Neuro: alert & oriented x3, NAD Neck: no JVD present Lungs: CTA, unlabored respirations Heart: RRR Abdomen: NT/ND Extremities: other: (no edema) - Telemetry Telemetry Rhythm: NSR - Labs Result Diagrams: 04/07/18 12:44 04/07/18 06:09 Troponin/CKMB CK-MB (CK-2) 7.3 ng/mL (0-6.6) H* 04/06/18 08:49 Troponin I 0.059 ng/mL (< 0.028) H 04/06/18 14:42 - Assessment/Plan 1. Bradycardia. Resolved. 2. Altered mental status 3. Possible seizure. 4. Paroxysmal afib 5. ESRD. 6. Acute CVA 7. hyperglycemia. 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 Currently on heaprin drip. - May transfer to floor from cardiac perspective.
--- NOTE | 2018-04-08 13:14 | PRG ---
DATE OF SERVICE: 04/08/2018 SUBJECTIVE: A 78-year-old female being seen for end-stage renal disease. The patient denies any nausea, vomiting, or chest pain. OBJECTIVE: CONSTITUTIONAL: The patient is awake and alert. VITAL SIGNS: Afebrile. Pulse 65, breathing 16, blood pressure 149/68. GENERAL APPEARANCE AND MENTAL STATUS: Fair. HEAD/NECK: Normocephalic. Atraumatic. EYES: EOMI. No deformity. EARS: Clear. No ulcers. NOSE: Intact. No lesions. MOUTH: Clear. No discharge. THROAT: Clear. No exudate. LUNGS: Clear. No crackles. CARDIAC: S1, S2. No rub. ABDOMEN: Benign. Bowel sounds positive. GENITALIA/RECTUM: Galvez absent. BACK/EXTREMITIES: Edema 0+. NEUROLOGICAL: Alert and motor intact. SKIN: LYMPHATICS: LABORATORY DATA: Hemoglobin 11.6. ASSESSMENT AND PLAN: 1. Stage 6 chronic kidney disease, continue hemodialysis. 2. Hypertension, stable. 3. Anemia, stable. 4. Medication based on GFR appropriate. 5. Continue peritoneal dialysis. Job ID: [id number]
[2018-04-08] MEDS: Sodium Chloride 0.45% 1,000 ML IV SCH (13:37)
--- NOTE | 2018-04-08 14:48 | PRG ---
DATE OF SERVICE: 04/08/2018 SUBJECTIVE: Ms. Rivers had a bit of a restless night. She became agitated and confused. She subsequently got some sleep and has been more lucid this morning. Her notes that she is a bit more conversant and appropriate, though she continues to have confused thoughts about things that she is scheduled to have done. Her MRI of the brain revealed multiple small areas of ischemia involving both anterior and posterior circulation. She has had some documented atrial fibrillation last month. She is currently on a heparin drip along with aspirin. Her does not report any definitive convulsive activity while at home. She has had some continued tremors and variable amounts of confusion. Keppra was started yesterday. She otherwise is without any focal complaints or focal findings on exam. Given the multiple areas of infarction and history of atrial fibrillation, I would continue an anticoagulant for long-term management. There is a history of unresponsiveness, which could have been secondary to an acute stroke-related seizure. Continue the Keppra at 500 mg twice a day. Hopefully with time, her cognitive state will improve. Job ID: [id number]
[2018-04-08] MEDS ORDERED: Insulin Glargine 10 UNITS in Pre-Filled Syringe 1 EACH SC SCH (21:00)
[2018-04-09] MEDS: Heparin 25,000 units/D5W 500 ML IVPB SCH (00:55)
[2018-04-09 03:46] LABS: Phosphorus 8.2 mg/dL (2.3-4.7)
[2018-04-09] MEDS: Fish Oil 1,000 MG CAP PO SCH ×4 (05:31→21:13)
[2018-04-09] MEDS: Docusate 100 MG CAP PO SCH ×4 (05:31→21:15)
[2018-04-09] MEDS: HumaLOG 300 UNITS/3 ML VIAL SC PRN (06:50)
[2018-04-09] MEDS: Levothyroxine 150 MCG TAB PO SCH (07:40)
--- NOTE | 2018-04-09 09:09 | PDOC.PN ---
- Subjective Encounter Start Date: 04/09/18 Encounter Start Time: 09:07 Ms. Rivers was seen today in follow-up of acute CVA. A code green was called this morning, as she was noted to have a decrease in her responsiveness, and her speech seemed more jumbled. Her nurse also noted that she continues to stare and did not seem to track. I responded to the code, and She did seem a little more confused than yeesterday, but she did focus on me when I spoke with her. She was able to answer some questions appropriately. - Objective Resuscitation Status - Order Detail: 04/06/18 11:53 Resuscitation Status Routine Resuscitation Status: DNAR: NO Resuscitation Discussed with: d/w POA at bedside MAR Reviewed: Yes Vital Signs & Weight: Vital Signs (12 hours) Temp Pulse Resp BP Pulse Ox 04/09/18 07:54 97.8 F 64 14 166/77 H 94 L 04/09/18 04:00 98.3 F 63 24 H 107/74 92 L 04/09/18 00:00 98.2 F 63 20 128/71 95 Weight Admit Weight 145 lb Weight 145 lb 8.081 oz Most Recent Monitor Data Heart Rate from ECG 67 NIBP 154/78 NIBP BP-Mean 103 Respiration from ECG 21 SpO2 99 I&O: 04/08/18 04/09/18 04/10/18 06:59 06:59 06:59 Intake Total 1218.2 850 Output Total 194 80 Balance 1024.2 770 Result Diagrams: 04/07/18 12:44 04/07/18 06:09 Additional Labs: Accuchecks 04/09/18 04/08/18 04/08/18 05:51 20:41 17:08 POC Glucose 264 H 193 H 161 H 04/08/18 04/08/18 04/08/18 15:57 13:16 11:24 POC Glucose 58 L* 72 56 L* Phys Exam - Physical Examination HEENT: PERRLA Respiratory: no rales + rhonchi bilaterally and upper airway noise Cardiovascular: RRR, no significant murmur, no rub Gastrointestinal: soft, non-tender, no distention, positive bowel sounds Musculoskeletal: pulses present, edema present Neurological: moves all 4 limbs + intermittent dysarthria Dx/Plan (1) Acute CVA (cerebrovascular accident) Code(s): I63.9 - CEREBRAL INFARCTION, UNSPECIFIED Status: Acute Comment: embolic cva (2) Metabolic encephalopathy Code(s): G93.41 - METABOLIC ENCEPHALOPATHY Status: Acute (3) DM type 2 (diabetes mellitus, type 2) Status: Chronic Qualifiers: Diabetes mellitus mcc insulin use: with mcc use Diabetes mellitus complication status: with kidney complications Diabetes mellitus complication detail: with chronic kidney disease Chronic kidney disease stage : on chronic dialysis Qualified Code(s): E11.22 - Type 2 diabetes mellitus with diabetic chronic kidney disease; N18.6 - End stage renal disease; Z79.4 - senior care (current) use of insulin; Z99.2 - Dependence on renal dialysis (4) ESRD (end stage renal disease) on dialysis Code(s): N18.6 - END STAGE RENAL DISEASE; Z99.2 - DEPENDENCE ON RENAL DIALYSIS Status: Chronic Comment: on PD (5) HTN (hypertension) Code(s): I10 - ESSENTIAL (PRIMARY) HYPERTENSION Status: Chronic Qualifiers: Hypertension type: essential hypertension Qualified Code(s): I10 - Essential (primary) hypertension (6) Cerebral amyloid angiopathy Code(s): E85.4 - ORGAN-LIMITED AMYLOIDOSIS; I68.0 - CEREBRAL AMYLOID ANGIOPATHY Status: Suspected Comment: based on imaging (7) Bradycardia Code(s): R00.1 - BRADYCARDIA, UNSPECIFIED Status: Resolved Comment: off dopamine and dobutamine - Plan * Acute CVA-Intermittent Worsening of her symptoms- She was sent for stat CT scan of the brain which was negative for bleed, or any significant change- will continue the Heparin drip for now- likely stroke in evolution * Seizures- continue Keppra * ESRD- plan is for AV- fistula placement for transition to HD from PD. * HTN- blood pressure is labile- Carvediolol is on Hold due to bradycardia- will continue Hydralazine PRN and monitor * DM- also labile- will continue to monitor her on a SSI, and will likely add a low dose Lantus for the evening * ESRD- continue PD * Chronic Anticoagulation- will continue Heparin drip. Given today's events will wait another day or so to transition to an oral anticoagulant * Bradycardia- heart rate has improved . .
--- NOTE | 2018-04-09 10:16 | CT ---
HEAD CT WITHOUT CONTRAST: 04/09/2018 HISTORY: Stroke alert. Aphasia and neglect to right side. Slurred speech. COMPARISON: 04/06/2018 TECHNIQUE: Axial CT imaging obtained at 5 mm intervals, from the vertex through the skull base, without contrast . FINDINGS: The imaged paranasal sinuses/mastoid air cells are well aerated. There is no displaced calvarial fra cture. There is extensive periventricular, deep, and subcortical white matter hypodensity, evidence of small vessel disease. Foci of hypodensity noted in the bilateral cerebellar hemispheres, suggesting areas of prior infarction. No intracranial hemorrhage. Recent brain MRI from 04/06/2018 demonstrated jennifer dence of multifocal acute infarction. IMPRESSION: 1. No intracranial hemorrhage. 2. Evidence of prominent small vessel disease. If there is clinical concern for acute infarction, brain MRI advised. Results discussed with Dr. Funes at 8:26 a.m. on 04/09/2018. CODE CR POS: JOE[facility]
[2018-04-09] MEDS: MEROPENEM 1 GM/50 ML 1 GM in Premix Bag 1 BAG IVPB SCH (10:41)
[2018-04-09] MEDS: Famotidine/PF 20 mg/2ml Vial SLOW IVP SCH (10:42)
[2018-04-09] MEDS: Aspirin 325 mg Enteric Coated Tablet PO SCH (10:42)
[2018-04-09] MEDS: Insulin Glargine 4 UNITS in Pre-Filled Syringe 1 EACH SC SCH (10:42)
[2018-04-09] MEDS: Sodium Chloride 0.45% 1,000 ML IV SCH (10:43)
[2018-04-09 11:07] LABS: Hemoglobin 12.3 g/dL (12.0-16.0)
--- NOTE | 2018-04-09 11:19 | PRG ---
DATE OF SERVICE: 04/09/2018 SUBJECTIVE: A 78-year-old female, being seen for end-stage renal disease. The patient denies any nausea, vomiting, or chest pain. OBJECTIVE: CONSTITUTIONAL: The patient is awake and alert. VITAL SIGNS: Afebrile, pulse 64, breathing 16, blood pressure 166/77. GENERAL APPEARANCE AND MENTAL STATUS: Fair. HEAD/NECK: Normocephalic. Atraumatic. EYES: EOMI. No deformity. EARS: Clear. No ulcers. NOSE: Intact. No lesions. MOUTH: Clear. No discharge. THROAT: Clear. No exudate. LUNGS: Clear. No crackles. CARDIAC: S1, S2. No rub. ABDOMEN: Benign. Bowel sounds positive. GENITALIA/RECTUM: Galvez absent. BACK/EXTREMITIES: Edema 0+. NEUROLOGICAL: Alert and motor intact. SKIN: LYMPHATICS: LABORATORY DATA: None today. ASSESSMENT AND PLAN: 1. Stage 6 chronic kidney disease. Continue peritoneal dialysis. 2. Hypertension, stable. 3. Anemia, stable. 4. We will order labs. Per the patient's request, the patient is getting AV fistula in case cannot perform PD. Job ID: [id number]
[2018-04-09 11:53] LABS: Anion Gap 23 mmol/L (10-20); BUN (Urea Nitrogen) 62 mg/dL (9.8-20.1); Calc. Creatinine Clearance 6 mL/min (70-130); Calcium 7.9 mg/dL (7.8-10.44); Carbon Dioxide 21 mmol/L (23-31); Chloride 99 mmol/L (98-107); Estimated GFR-MDRD 5; Glucose 144 mg/dL (83-110); Potassium 3.5 mmol/L (3.5-5.1); Sodium 139 mmol/L (136-145)
[2018-04-09 13:01] LABS: Hemoglobin 12.3 g/dL (12.0-16.0); Platelet Count 237 thou/uL (130-400)
--- NOTE | 2018-04-09 13:15 | PDOC.CTH ---
Cardiology Progress Note - Subjective No overnight events. Had brainwave mapping study today and awaiting results. Spoke with regarding care. - Objective Vital Signs Temp Pulse Resp BP Pulse Ox 04/09/18 11:59 98.6 F 63 14 174/83 H 97 04/09/18 07:54 97.8 F 64 14 166/77 H 94 L 04/09/18 04:00 98.3 F 63 24 H 107/74 92 L Admit Weight 145 lb Weight 145 lb 8.081 oz 04/08/18 04/09/18 04/10/18 06:59 06:59 06:59 Intake Total 1218.2 850 Output Total 194 80 Balance 1024.2 770 - Physical Examination Neck: no JVD present Lungs: other: (coarse BS) Heart: RRR Abdomen: NT/ND - Telemetry Telemetry Rhythm: SR - Labs Result Diagrams: 04/09/18 12:43 04/09/18 08:12 Troponin/CKMB CK-MB (CK-2) 7.3 ng/mL (0-6.6) H* 04/06/18 08:49 Troponin I 0.059 ng/mL (< 0.028) H 04/06/18 14:42 - Assessment/Plan 1. Bradycardia - resolved 2. Altered mental status 3. Possible seizure. 4. Paroxysmal afib 5. ESRD. 6. Recent acute CVA Continue heparin gtt and current medications at this time. Awaiting input from neuro regarding long-term prognosis. No changes today from CV standpoint.
--- NOTE | 2018-04-09 14:05 | ULT ---
ULTRASOUND VESSEL MAPPING DIALYSIS ACCESS: HISTORY: ESRD. COMPARISON: None. TECHNIQUE: Real-time xiong-scale color Doppler and spectral analysis of the bilateral upper extremity arterial an d venous system is performed. FINDINGS: RIGHT SIDE BRACHIAL ARTERIAL: 4.4 mm RADIAL ARTERY: 1.5 mm ULNAR ARTERY: 1.9 mm CEPHALIC VEIN: 2.6 mm 3.3 mm 3.6 mm 2.5 mm 1.2 mm 1.4 mm 1.4 mm BASILIC VEIN: 3.4 mm 2.6 mm 3.6 mm 2.5 mm 1.1 mm 1.0 mm 1.4 mm LEFT SIDE BRACHIAL VEIN: 3.8 mm RADIAL ARTERY: 1.6 mm ULNAR ARTERY: 1.1 mm There is thrombosis of the left cephalic vein at the level of the antecubital fossa. The upper arm measures 2.1 mm. The lower arm measures 1.2 mm. IMPRESSION: Vascular size as above. There is thrombosis of the left cephalic vein, at the level of the antecubit al fossa. POS: [facility]
[2018-04-09 14:44] LABS: ANA Symphony (Qualitative) Negative (Negative); ANA Symphony (Quantitative) Less than 0.1 Ratio (< 0.7 Negative); dsDNA IgG Antibody 1.1 IU/mL (<10 Negative)
[2018-04-09] MEDS ORDERED: CEFAZOLIN/Water 2 GM/20 ML SYRINGE SLOW IVP SCH (16:15)
[2018-04-09] MEDS ORDERED: CEFAZOLIN 2 GM/50 ML-DEXTROSE 2 GM in Premix Bag 1 BAG IVPB SCH (16:30)
--- NOTE | 2018-04-09 23:00 | HP ---
HISTORY OF PRESENT ILLNESS: Deborah Rivers is a 78-year-old female, admitted to this hospitalization for neurological changes. CAT scan obtained on admission 04/06/2018, revealing no acute changes. Subsequent 04/06/2018, same-day MRA/MRI revealed embolic changes with small acute infarcts in the left frontal lobe, right parietal, white matter, as well as left cerebellar hemisphere, all consistent with amyloid angiopathy and diffuse cerebral volume loss. The patient is a longstanding peritoneal dialysis catheter patient. It is the age they are concerned that they will not be able to continue peritoneal dialysis, and I have been asked to see her regarding consideration of establishing a fistula. She has a history of severe bradycardia, acute encephalopathy, demand ischemia, possible seizures, and UTI. Finding the patient unresponsive on the day of admission, transferred by EMS to the emergency room because of her prior history of two large strokes affecting her cognition and short-term memory. Apparently, she was in inpatient rehab for 21 days and was just discharged home a day prior to admission to this hospitalization. Her Coreg was held and Dr. Burkett saw her in consultation. Her bradycardia resolved. Paroxysmal atrial fibrillation was noted. It was felt that she would need long-term anticoagulation for stroke prevention. Currently, she is on aspirin, Colace, Pepcid, insulin, levothyroxine, and meropenem. ALLERGIES: IODINE AND SHELLFISH. SOCIAL HISTORY: Tobacco, none. Alcohol, none. HOME MEDICATIONS: Include 1. P.r.n. Compazine. 2. Ocuvite. 3. Trazodone. 4. Effexor XR. 5. MiraLAX. 6. Levothyroxine. 7. Insulin. 8. P.r.n. hydrocodone. 9. Zyrtec. 10. Coreg (discontinued this hospitalization due to bradycardia). 11. Aspirin. 12. Xanax. PAST SURGICAL HISTORY: Cholecystectomy, thyroid surgery, lumbar surgery, ORIF of femur, and retinal surgery for retinopathy. PAST MEDICAL HISTORY: History of strokes; history of paroxysmal atrial fibrillation; end-stage renal disease, on peritoneal dialysis for the last one and half years; insulin-dependent diabetes for 38 years; and cataract surgery. PHYSICAL EXAMINATION: GENERAL: The patient is left handed. She is a DNR. VITAL SIGNS: 5 feet 5 inches, 145 pounds, BMI 24, temperature 98.5, pulse 69, blood pressure 177/79. HEAD, EARS, EYES, NOSE AND THROAT: Unremarkable. LUNGS: Clear to auscultation. CARDIAC: Regular rate and rhythm. ABDOMEN: Soft. Peritoneal dialysis catheter placed. EXTREMITIES: Unremarkable. LABORATORY DATA: White count 5, hemoglobin 12. Sodium 139, potassium 3.5, creatinine 8.36, GFR 5, glucose is 141 to 264, and magnesium 1.9. ASSESSMENT: Peritoneal dialysis status end-stage renal disease. The patient has had ultrasound vein mapping in both arms for dialysis access. This reveals her right cephalic vein 2.6, 3.3, 3.6, 2.5 mm near the AC, basilic vein 3.4, 2.6, and 3.6. There is extensive thrombus in the left cephalic vein at the level AC, not accessible for access due to iatrogenic thrombosis. PLAN: Right arm primary fistula. If [place] veins are not available for a [place] fistula, then prosthetic will not be placed. We will plan this Saturday. I tentatively scheduled up today, but she had a fluctuating neurological status and this was held. Currently, she is at her baseline neurological status and doing well. We would hold anticoagulation until that time. Job ID: [id number]
[2018-04-10] MEDS: Levothyroxine 150 MCG TAB PO SCH (05:28)
[2018-04-10] MEDS: HumaLOG 300 UNITS/3 ML VIAL SC PRN (05:44)
[2018-04-10 06:23] LABS: Phosphorus 8.2 mg/dL (2.3-4.7)
--- NOTE | 2018-04-10 08:13 | ULT ---
ULTRASOUND VESSEL MAPPING DIALYSIS ACCESSS: Date: 04/09/18 HISTORY: End-stage renal disease. COMPARISON: None. TECHNIQUE: Real-time Gaffney scale with color Doppler and spectral analysis of the bilateral upper extremity venous systems performed. FINDINGS: There is partial thrombosis of the left cephalic vein at the antecubital fossa. RIGHT UPPER EXTREMITY BRACHIAL ARTERY: 4.4 mm RADIAL ARTERY: 1.5 mm ULNAR ARTERY: 1.9 mm CEPHALIC VEIN Proximal Arm: 2.7 mm Mid Arm: 3.3 mm Distal Arm: 3.6 mm Antecubital Fossa: 2.5 mm Proximal Forearm: 1.2 mm Mid Forearm: 1.4 mm Distal Forearm: 1.4 mm BASILIC VEIN Proximal Arm: 3.4 mm Mid Arm: 2.6 mm Distal Arm: 3.6 mm Antecubital Fossa: 2.5 mm Proximal Forearm: 1.1 mm Mid Forearm: 1.0 mm Distal Forearm: 1.4 mm LEFT UPPER EXTREMITY BRACHIAL ARTERY: 3.8 mm RADIAL ARTERY: 1.6 mm ULNAR ARTERY: 1.1 mm BASILIC VEIN Proximal Arm: 4.1 mm Mid Arm: 3.1 mm Distal Arm: 4.1 mm Antecubital Fossa: 2.7 mm Proximal Forearm: 1.8 mm Mid Forearm: 1.9 mm Distal Forearm: 1.5 mm CEPHALIC VEIN Upper Arm: 2.2 mm Lower Arm: 1.0 mm IMPRESSION: 1. Vascular sizes as above. 2. Partial thrombosis of the left cephalic vein at level of antecubital fossa. POS: [facility]
[2018-04-10] MEDS: MEROPENEM 1 GM/50 ML 1 GM in Premix Bag 1 BAG IVPB SCH (09:12)
[2018-04-10] MEDS: Sodium Chloride 0.45% 1,000 ML IV SCH (09:12)
[2018-04-10] MEDS: Famotidine/PF 20 mg/2ml Vial SLOW IVP SCH (09:13)
[2018-04-10] MEDS: Insulin Glargine 4 UNITS in Pre-Filled Syringe 1 EACH SC SCH (09:13)
[2018-04-10] MEDS: Docusate 100 MG CAP PO SCH ×3 (09:14→20:59)
[2018-04-10] MEDS: Aspirin 325 mg Enteric Coated Tablet PO SCH ×2 (09:14→16:21)
[2018-04-10] MEDS: Fish Oil 1,000 MG CAP PO SCH ×3 (09:14→20:59)
[2018-04-10] MEDS ORDERED: Lorazepam 2 MG/ML VIAL SLOW IVP PRN (09:28)
[2018-04-10] MEDS ORDERED: Sodium Chloride 0.45% 1,000 ML IV SCH (09:45)
--- NOTE | 2018-04-10 11:53 | PDOC.PN ---
- Subjective Encounter Start Date: 04/10/18 Encounter Start Time: 11:51 Ms. Rivers was seen today in follow-up of acute CVA. She has not improved much overnight. Sheis very lethargic. she will awaken, but her voice is very weak, and she does not want to participate in PT. - Objective Resuscitation Status - Order Detail: 04/06/18 11:53 Resuscitation Status Routine Resuscitation Status: DNAR: NO Resuscitation Discussed with: d/w POA at bedside MAR Reviewed: Yes Vital Signs & Weight: Vital Signs (12 hours) Temp Pulse Pulse Pulse Resp BP BP 04/10/18 10:36 77 79 214/78 H 202/77 H 04/10/18 08:00 98.7 F 71 18 04/10/18 04:26 97.9 F 71 20 04/10/18 00:00 99.8 F H 69 20 BP Pulse Ox 04/10/18 10:36 04/10/18 08:00 136/65 97 04/10/18 04:26 186/88 H 94 L 04/10/18 00:00 118/52 L 96 Weight Admit Weight 145 lb Weight 145 lb 8.081 oz Most Recent Monitor Data Heart Rate from ECG 67 NIBP 154/78 NIBP BP-Mean 103 Respiration from ECG 21 SpO2 99 I&O: 04/09/18 04/10/18 04/11/18 06:59 06:59 06:59 Intake Total 850 Output Total 80 Balance 770 Result Diagrams: 04/09/18 12:43 04/09/18 08:12 Additional Labs: Accuchecks 04/10/18 04/10/18 04/10/18 11:40 05:35 00:39 POC Glucose 106 273 H 241 H 04/09/18 04/09/18 19:46 16:53 POC Glucose 127 H 57 L* Phys Exam - Physical Examination HEENT: PERRLA + rhonchi and upper airway noise Cardiovascular: RRR, no significant murmur, no rub Gastrointestinal: soft, non-tender, no distention, positive bowel sounds Musculoskeletal: no edema Dx/Plan (1) Acute CVA (cerebrovascular accident) Code(s): I63.9 - CEREBRAL INFARCTION, UNSPECIFIED Status: Acute Comment: embolic cva (2) Metabolic encephalopathy Code(s): G93.41 - METABOLIC ENCEPHALOPATHY Status: Acute (3) DM type 2 (diabetes mellitus, type 2) Status: Chronic Qualifiers: 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 use Diabetes mellitus complication status: with kidney complications Diabetes mellitus complication detail: with chronic kidney disease Chronic kidney disease stage : on chronic dialysis Qualified Code(s): E11.22 - Type 2 diabetes mellitus with diabetic chronic kidney disease; N18.6 - End stage renal disease; Z79.4 - iv technician (current) use of insulin; Z99.2 - Dependence on renal dialysis (4) ESRD (end stage renal disease) on dialysis Code(s): N18.6 - END STAGE RENAL DISEASE; Z99.2 - DEPENDENCE ON RENAL DIALYSIS Status: Chronic Comment: on PD (5) HTN (hypertension) Code(s): I10 - ESSENTIAL (PRIMARY) HYPERTENSION Status: Chronic Qualifiers: Hypertension type: essential hypertension Qualified Code(s): I10 - Essential (primary) hypertension (6) Cerebral amyloid angiopathy Code(s): E85.4 - ORGAN-LIMITED AMYLOIDOSIS; I68.0 - CEREBRAL AMYLOID ANGIOPATHY Status: Suspected Comment: based on imaging (7) Bradycardia Code(s): R00.1 - BRADYCARDIA, UNSPECIFIED Status: Resolved Comment: off dopamine and dobutamine - Plan * Acute CVA- she has extreme weakness as a result. She has a very weak swallow, and the Speech Therapist has recommended leaving her NPO * Continue the Heparin drip * HTN- blood pressure has been extremely labile- but mostly elevated- will add a Catapres patch- since she is now NPO, continue PRN Hydralazine, and Labetalol * ESRD- continue PD- may need to consider postponing the placement of the AV fistula once again given her current fragile condition * DM- blood glucose is stable * Probable Seizures- continue Keppra. * Condition is guarded
--- NOTE | 2018-04-10 12:47 | PRG ---
DATE OF SERVICE: 04/10/2018 SUBJECTIVE: A 78-year-old female being seen for end-stage renal disease. The patient denies any nausea, vomiting, or chest pain. OBJECTIVE: CONSTITUTIONAL: The patient is awake and alert. VITAL SIGNS: Afebrile, pulse breathing 16, and blood pressure 136/65. GENERAL APPEARANCE AND MENTAL STATUS: Fair. HEAD/NECK: Normocephalic. Atraumatic. EYES: EOMI. No deformity. EARS: Clear. No ulcers. NOSE: Intact. No lesions. MOUTH: Clear. No discharge. THROAT: Clear. No exudate. LUNGS: Clear. No crackles. CARDIAC: S1, S2. No rub. ABDOMEN: Benign. Bowel sounds positive. GENITALIA/RECTUM: Galvez absent. BACK/EXTREMITIES: Edema 0+. NEUROLOGICAL: Alert and motor intact. LABORATORY DATA: Hemoglobin 12.3. ASSESSMENT AND PLAN: 1. Stage 6 chronic kidney disease. Continue peritoneal dialysis. 2. Hypertension, stable. 3. Anemia, stable. 4. Access. The patient is requesting hemodialysis access, which will be placed by Dr. Garcia. Job ID: [id number]
--- NOTE | 2018-04-10 13:19 | PRG ---
DATE OF SERVICE: 04/10/2018 SERVICE: Pulmonary Medicine. INTERVAL HISTORY: The patient is doing okay from respiratory standpoint. She is breathing comfortably. She has a little bit of paradoxical abdominal movement. Otherwise, she is coughing. She is not bringing up any sputum. There has been a little bit of interval change or improvement in her neurologic condition. That being said, today she demonstrates generalized asterixis. PHYSICAL EXAMINATION: VITAL SIGNS: Afebrile, pulse 73, blood pressure 207/92, respirations 14, and saturation 96% on room air. GENERAL: The patient is awake and alert. No apparent distress. LUNGS: Decent air entry. Rhonchi and crackles are both present. There is no prolonged expiratory phase. HEART: Normal rate, regular. ABDOMEN: Soft, nontender, and nondistended. Bowel sounds are positive. MUSCULOSKELETAL: No cyanosis or clubbing. There is diffuse 2+ edema throughout. GENITOURINARY: Galvez catheter in place. NEUROLOGIC: Grossly nonfocal. She has diffuse weakness present throughout bilateral upper and lower extremities, and once again demonstrates generalized asterixis. I do not see any of the movement disorder previously noted. LABORATORY DATA: Hemoglobin 12.3. Magnesium 1.6, phosphorus 8.2. BUN 62. Blood sugar ranges from 57 to 241. Peritoneal fluid was clear with no significant white blood cells. ALENA screen was unremarkable. Urine culture is growing Enterococcus faecalis, which is pansensitive. Blood cultures x2 and peritoneal fluid is sterile. IMAGING DATA: 1. Echocardiogram demonstrates normal ejection fraction. There is 1/3 diastolic dysfunction. Moderate concentric left ventricular hypertrophy is noted, but there is no significant valvular disease. 2. CT of the brain demonstrates no acute intracranial abnormality. ASSESSMENT: 1. Acute hypoxic respiratory failure. 2. End-stage renal disease, on peritoneal dialysis. 3. Generalized asterixis. 4. Acute on chronic diastolic heart failure, mostly secondary to volume overload state. DISCUSSION AND PLAN: I will interrupt her IV fluids. We will continue working on getting fluid off through peritoneal dialysis. If the EEG is unremarkable, I would be an advocate towards moving her to hemodialysis as the generalized asterixis may be a component of unmeasured toxins that are creating her encephalopathy. Pulmonary will continue to follow along for now. Job ID: [id number]
[2018-04-10] MEDS: Heparin 25,000 units/D5W 500 ML IVPB SCH (14:17)
[2018-04-10] MEDS ORDERED: Labetalol HCl 100 MG/20 ML VIAL SLOW IVP PRN (14:39)
[2018-04-10] MEDS ORDERED: DIANEAL FS SCH (15:30)
[2018-04-10] MEDS ORDERED: HEPARIN FS SCH (15:30)
--- NOTE | 2018-04-10 15:33 | PDOC.CTH ---
Cardiology Progress Note - Subjective Chart and tele reviewed. No overnight events. BP labile and already addressed by primary team. No further significant bradycardia. - Objective Vital Signs Temp Pulse Pulse Pulse Resp BP BP 04/10/18 11:56 98.7 F 73 14 04/10/18 10:36 77 79 214/78 H 202/77 H 04/10/18 08:00 98.7 F 71 18 04/10/18 04:26 97.9 F 71 20 BP Pulse Ox 04/10/18 11:56 207/92 H 96 04/10/18 10:36 04/10/18 08:00 136/65 97 04/10/18 04:26 186/88 H 94 L Admit Weight 145 lb Weight 145 lb 8.081 oz 04/09/18 04/10/18 04/11/18 06:59 06:59 06:59 Intake Total 850 Output Total 80 Balance 770 - Physical Examination General/Neuro: other: (Alert and awake) Heart: RRR Abdomen: NT/ND Extremities: other: (no edema) - Telemetry Telemetry Rhythm: SB-NSR - Labs Result Diagrams: 04/09/18 12:43 04/09/18 08:12 Troponin/CKMB CK-MB (CK-2) 7.3 ng/mL (0-6.6) H* 04/06/18 08:49 Troponin I 0.059 ng/mL (< 0.028) H 04/06/18 14:42 - Assessment/Plan 1. Bradycardia - lowest pulse 51bpm on tele now. 2. Altered mental status 3. Possible seizure. 4. Paroxysmal afib 5. ESRD. 6. Recent acute CVA 7. Labile HTN No changes from my standpoint. BP already addressed by primary team. 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 Will defer to neuro. Currently on Heparin gtt. Will see PRN. Please call if needed.
[2018-04-10] MEDS: Ampicillin/Sulbactam 1.5 GM in Sodium Chloride 0.9% 100 ML IVPB SCH ×2 (16:06→22:19)
[2018-04-10] MEDS: hydrALAZINE 20 MG/ML VIAL SLOW IVP PRN (16:07)
[2018-04-10] MEDS ORDERED: cloNIDine 0.2mg/24 Hour PATCH TD SCH (17:00)
--- NOTE | 2018-04-10 18:30 | PDOC.EVN ---
Event Note - Event Note Event Note: I spoke with the patient's son- in- law Dr. Eldon Alcantara who is a physician over the phone regarding her condition. I also spoke with Dr. Arnold and Dr. Garcia. She has been more lethargic over the past day or so. I am not entirely certain this is all due to the CVA. She has been on PD, and she may be inadequately dialyzed with the method. After discussion with her son-in-law- the Plan is to consider trying a round or two of HD to see if she will improve. If she does not improve, then her symptoms are likely all Neurologic, and placement of an AV fistula may not be necessary. I have also changed her antibiotic from Meropenem to Unasyn, to see if this may make a difference.
[2018-04-11] MEDS: HumaLOG 300 UNITS/3 ML VIAL SC PRN ×3 (00:15→18:03)
[2018-04-11] MEDS: Levothyroxine 150 MCG TAB PO SCH (06:12)
[2018-04-11 06:20] LABS: Anion Gap 21 mmol/L (10-20); BUN (Urea Nitrogen) 55 mg/dL (9.8-20.1); Calc. Creatinine Clearance 6 mL/min (70-130); Calcium 7.5 mg/dL (7.8-10.44); Carbon Dioxide 20 mmol/L (23-31); Chloride 101 mmol/L (98-107); Estimated GFR-MDRD 5; Glucose 250 mg/dL (83-110); Potassium 3.3 mmol/L (3.5-5.1); Sodium 139 mmol/L (136-145)
[2018-04-11] MEDS ORDERED: predniSONE 20 MG TAB PO SCH (08:00)
[2018-04-11] MEDS ORDERED: Digoxin 0.5 MG/2 ML AMP SLOW IVP SCH (08:15)
[2018-04-11] MEDS ORDERED: Amiodarone 200 MG TAB PO SCH (09:00)
[2018-04-11] MEDS: Ampicillin/Sulbactam 1.5 GM in Sodium Chloride 0.9% 100 ML IVPB SCH ×3 (10:11→23:09)
[2018-04-11] MEDS: Famotidine/PF 20 mg/2ml Vial SLOW IVP SCH (10:12)
[2018-04-11] MEDS ORDERED: Heparin 1,000 UNITS/ML VIAL ONE (11:11)
[2018-04-11] MEDS ORDERED: Lidocaine 1% PF 5 ML VIAL ONE (12:08)
[2018-04-11] MEDS ORDERED: PROPOFOL 200 MG/20 ML VIAL ONE (12:08)
--- NOTE | 2018-04-11 12:27 | PRG ---
DATE OF SERVICE: 04/11/2018 SERVICE: Pulmonary Medicine. INTERVAL HISTORY: The patient is doing okay from respiratory standpoint. She is breathing comfortably. She does not provide any additional elements of the history because of her encephalopathy. She is not speaking currently. That being said , she did not appear to have any significant distress. Physical Therapy is working with her currently. She is not able to participate with extensive maneuvers, although doing passive range of motion. PHYSICAL EXAMINATION: VITAL SIGNS: Afebrile with a T-max of 99.8, pulse 99, blood pressure 125/77, respirations 18, and saturation 96% on 2 L nasal cannula. GENERAL: The patient is somnolent. She has her eyes closed. With gentle stimulation, she will open them up. She will answer one or two word sentences, but then drift off back to sleep without any stimulation. HEENT: Normocephalic and atraumatic. Sclerae are white. Conjunctivae are pink. Oral mucosa is moist without lesions. LUNGS: Decent air entry. Rhonchi and crackles are both present. There is no prolonged expiratory phase or wheezing present. HEART: Normal rate, regular. ABDOMEN: Soft, nontender, and nondistended. Bowel sounds are positive. MUSCULOSKELETAL: No cyanosis or clubbing. There is diffuse 2+ pitting throughout, which is more dramatically displayed in the pelvis and upper extremities. She has trace pitting in the lower extremities. LABORATORY DATA: Creatinine 7.88 and downtrending gently and BUN 55, also improving. Anion gap 21, bicarb 20, potassium 3.3, and calcium 7.5. Urine culture is growing Enterococcus faecalis, which is pansensitive. Body fluid culture from the peritoneal effluent is negative. Blood cultures x2 are unremarkable. ASSESSMENT: 1. Acute hypoxic respiratory failure. 2. End-stage renal disease, on peritoneal dialysis. 3. Asterixis. 4. Metabolic encephalopathy, quite severe. 5. Acute on chronic diastolic heart failure, secondary to volume overload state. 6. Cerebral vascular accident. DISCUSSION AND PLAN: The only thing that would be causing her generalized asterixis at this point would be toxins that she would be cleared through the kidneys. She does not appear to have any significant liver disease, and does not have hypercapnia. I believe that moving forward with a trial of hemodialysis to see if she clears or encephalopathy is warranted. Pulmonary/Critical Care will continue to follow along while she remains in-house for now. We will wean away oxygen as tolerated. Job ID: [id number] MTDD
[2018-04-11] MEDS ORDERED: CEFAZOLIN 2 GM/50 ML BAG ONE (12:43)
[2018-04-11] MEDS ORDERED: Lidocaine 2% PF 5 ML VIAL ONE (13:16)
[2018-04-11] MEDS ORDERED: Bupivacaine HCl 0.5%/Epinephrine 1:200,000/PF 30 ml Vial ONE (13:16)
[2018-04-11] MEDS ORDERED: Heparin 10,000 UNITS/1 ML VIAL ONE (13:16)
[2018-04-11] MEDS ORDERED: Sodium Chloride 0.9% 10 ML ONE (13:16)
[2018-04-11] MEDS ORDERED: Fentanyl 100 MCG/2 ML VIAL ONE (13:27)
[2018-04-11] MEDS ORDERED: Midazolam HCl 2 mg/2 ml Vial ONE (13:27)
--- NOTE | 2018-04-11 13:45 | PDOC.CTH ---
Cardiology Progress Note - Subjective Called multiple times this morning before 0830 by nurses. Patient went into AF with RVR. Asymptomatic. Dig x 1 ordered, but not given as patient converted back to NSR after some time. Order for Amio 200mg BID given. Notified nurse patient was cleared for OR for HD access procedure, but if Heparin gtt needed to be stopped pre-op there is risk of CVA that family needed to be made aware of. Informed that I could not make rounds until later this afternoon to discuss this with them, but GS could pre-op. Now per nurse downstairs for procedure, but Amio not given as patient not taking oral meds. - Objective Vital Signs Temp Pulse Pulse Resp BP BP Pulse Ox 04/11/18 11:47 98.5 F 71 18 168/79 H 93 L 04/11/18 09:40 72 188/87 H 04/11/18 08:33 96 04/11/18 07:48 99 F 112 H 18 125/77 96 04/11/18 04:00 98.7 F 110 H 19 132/68 98 Pulse Ox 04/11/18 11:47 04/11/18 09:40 97 04/11/18 08:33 04/11/18 07:48 04/11/18 04:00 Admit Weight 145 lb Weight 145 lb 8.081 oz 04/10/18 04/11/18 04/12/18 06:59 06:59 06:59 Intake Total 800 Output Total 400 Balance 400 - Labs Result Diagrams: 04/09/18 12:43 04/11/18 05:59 Troponin/CKMB CK-MB (CK-2) 7.3 ng/mL (0-6.6) H* 04/06/18 08:49 Troponin I 0.059 ng/mL (< 0.028) H 04/06/18 14:42 - Assessment/Plan 1. Bradycardia 2. Altered mental status 3. Possible seizure. 4. Paroxysmal afib 5. ESRD. 6. Recent acute CVA 7. Labile HTN Patient downstairs in OR for HD access, so not seen. Chart reviewed. Will monitor rhythm closely. Presented intially with significant bradycardia on Coreg that responded to dopamine. Has been off all rhythm/rate control since admit and SR until today. Will try low dose Amio to see if we can maintain NSR. Lower loading dose given history of dimitri at admit. On Heparin gtt Continue to monitor rhythm over weekend.
[2018-04-11] MEDS ORDERED: Promethazine HCl 25 MG/ML VIAL SLOW IVP PRN (14:26)
[2018-04-11] MEDS ORDERED: Ondansetron HCl/PF 4 MG/2 ML Vial IVP PRN (14:26)
[2018-04-11] MEDS ORDERED: Promethazine HCl 25 MG/ML VIAL IM PRN (14:26)
--- NOTE | 2018-04-11 15:34 | RAD ---
CHEST 1 VIEW: HISTORY: Central line placement. COMPARISON: Radiograph of 04/06/2018. FINDINGS: Right IJ central venous catheter is in place in good position. Dialysis catheter, new, on the left, is in place in good position. No pneumothorax. Mild edema. Cardiomegaly. IMPRESSION: 1. Uncomplicated placement of left internal jugular dialysis catheter. 2. Severe degenerative change of right shoulder. POS: [facility] [place]
[2018-04-11] MEDS: Insulin Glargine 4 UNITS in Pre-Filled Syringe 1 EACH SC SCH (15:45)
--- NOTE | 2018-04-11 15:50 | PDOC.PN ---
- Subjective Encounter Start Date: 04/11/18 Encounter Start Time: 15:47 Ms. Rivers was seen today in follow-up of acute CVA. She is still very lethargic. She has been sleeping most of the day today. - Objective Resuscitation Status - Order Detail: 04/06/18 11:53 Resuscitation Status Routine Resuscitation Status: DNAR: NO Resuscitation Discussed with: d/w POA at bedside MAR Reviewed: Yes Vital Signs & Weight: Vital Signs (12 hours) Temp Pulse Pulse Resp BP BP Pulse Ox 04/11/18 11:47 98.5 F 71 18 168/79 H 93 L 04/11/18 09:40 72 188/87 H 04/11/18 08:33 96 04/11/18 07:48 99 F 112 H 18 125/77 96 04/11/18 04:00 98.7 F 110 H 19 132/68 98 Pulse Ox 04/11/18 11:47 04/11/18 09:40 97 04/11/18 08:33 04/11/18 07:48 04/11/18 04:00 Weight Admit Weight 145 lb Weight 145 lb 8.081 oz Most Recent Monitor Data Heart Rate from ECG 67 NIBP 154/78 NIBP BP-Mean 103 Respiration from ECG 21 SpO2 99 I&O: 04/10/18 04/11/18 04/12/18 06:59 06:59 06:59 Intake Total 800 Output Total 400 Balance 400 Result Diagrams: 04/09/18 12:43 04/11/18 05:59 Additional Labs: Accuchecks 04/11/18 04/11/18 04/10/18 06:00 00:04 16:52 POC Glucose 217 H 329 H 122 H Phys Exam - Physical Examination HEENT: PERRLA + rhonchi and upper airway noise Cardiovascular: RRR, no significant murmur, no rub Gastrointestinal: soft, non-tender, no distention, positive bowel sounds Musculoskeletal: pulses present, edema present Dx/Plan (1) Acute CVA (cerebrovascular accident) Code(s): I63.9 - CEREBRAL INFARCTION, UNSPECIFIED Status: Acute Comment: embolic cva (2) Metabolic encephalopathy Code(s): G93.41 - METABOLIC ENCEPHALOPATHY Status: Acute (3) DM type 2 (diabetes mellitus, type 2) Status: Chronic Qualifiers: Diabetes mellitus senior living insulin use: with senior living use Diabetes mellitus complication status: with kidney complications Diabetes mellitus complication detail: with chronic kidney disease Chronic kidney disease stage : on chronic dialysis Qualified Code(s): E11.22 - Type 2 diabetes mellitus with diabetic chronic kidney disease; N18.6 - End stage renal disease; Z79.4 - half-way (current) use of insulin; Z99.2 - Dependence on renal dialysis (4) ESRD (end stage renal disease) on dialysis Code(s): N18.6 - END STAGE RENAL DISEASE; Z99.2 - DEPENDENCE ON RENAL DIALYSIS Status: Chronic Comment: on PD (5) HTN (hypertension) Code(s): I10 - ESSENTIAL (PRIMARY) HYPERTENSION Status: Chronic Qualifiers: Hypertension type: essential hypertension Qualified Code(s): I10 - Essential (primary) hypertension (6) Cerebral amyloid angiopathy Code(s): E85.4 - ORGAN-LIMITED AMYLOIDOSIS; I68.0 - CEREBRAL AMYLOID ANGIOPATHY Status: Suspected Comment: based on imaging (7) Bradycardia Code(s): R00.1 - BRADYCARDIA, UNSPECIFIED Status: Resolved Comment: off dopamine and dobutamine - Plan * Acute CVA- she has been very lethargic- will change her aspirin to per rectum , until she is more alert * Continue the Heparin drip * ESRD- she has had the dialysis catheter placed- plan is to give a trial of Hemodialysis * Metabolic encephalopathy- from CVA and or inadequate dialysis * HTN- blood pressure is still elevated, but is trending down * AFIB- her heart rate is controlled * Hypothyroidism- can hold leveothyroxin safely for a few days * DM- She has not been alert enough to take anything by mouth- will cover with SSI only for now.
[2018-04-11] MEDS: Fish Oil 1,000 MG CAP PO SCH ×2 (16:23→21:53)
[2018-04-11] MEDS: Docusate 100 MG CAP PO SCH ×2 (16:23→21:53)
[2018-04-11] MEDS: Aspirin 325 mg Enteric Coated Tablet PO SCH (16:24)
[2018-04-11] MEDS ORDERED: Aspirin 300 MG Suppository PR SCH (16:45)
[2018-04-11] MEDS ORDERED: Heparin 25,000 units/D5W 500 ML IVPB SCH (17:00)
--- NOTE | 2018-04-11 17:35 | PRG ---
DATE OF SERVICE: 04/11/2018 SUBJECTIVE: This is a 78-year-old female being seen for end-stage kidney disease. The patient denies any nausea, vomiting, or chest pain. OBJECTIVE: CONSTITUTIONAL: The patient is awake, alert. VITAL SIGNS: Afebrile, pulse 71, breathing 16, blood pressure 120/77. GENERAL APPEARANCE AND MENTAL STATUS: Fair. HEAD/NECK: Normocephalic. Atraumatic. EYES: EOMI. No deformity. EARS: Clear. No ulcers. NOSE: Intact. No lesions. MOUTH: Clear. No discharge. THROAT: Clear. No exudate. LUNGS: Clear. No crackles. CARDIAC: S1, S2. No rub. ABDOMEN: Benign. Bowel sounds positive. GENITALIA/RECTUM: Galvez absent. BACK/EXTREMITIES: Edema 0+. NEUROLOGICAL: Alert and motor intact. LABORATORY DATA: Showed hemoglobin 12.3, potassium 3.3, creatinine 7.8. ASSESSMENT AND PLAN: 1. Stage 6 chronic kidney disease. Continue peritoneal dialysis. 2. Hypertension, stable. 3. Anemia, stable. 4. Altered mental status. We will give hemodialysis a try as there could be possible uremia. Job ID: [id number]
--- NOTE | 2018-04-11 21:28 | OP ---
DATE OF PROCEDURE: 04/11/2018 PREOPERATIVE DIAGNOSES: End-stage renal disease, peritoneal dialysis status, recent ischemic stroke on heparin drip with compromised neurological status. POSTOPERATIVE DIAGNOSES: End-stage renal disease, peritoneal dialysis status, recent ischemic stroke on heparin drip with compromised neurological status. PROCEDURES PERFORMED: Left internal jugular cuffed tunneled hemodialysis catheter, ultrasound and fluoroscopy used. ANESTHESIA: TIVA, local of 0.5% Marcaine with epinephrine 30 mL mixed with 2% Xylocaine 10 mL. INDICATIONS: Initially, I was asked to see her regarding the AV fistula in right arm for backup, but as her neurological condition worsen, the family decided to proceed with a hemodialysis catheter to try hemodialysis to see if her neurological status would improve and hoping that she will improve. DESCRIPTION OF PROCEDURE: The patient was taken to the operating room, where under intravenous sedation, neck and chest were prepared with ChloraPrep and draped in routine fashion. Local anesthetic was infiltrated in the skin and subcutaneous tissue about the operative site. Using ultrasound guidance, left internal jugular vein was cannulated with a trocar catheter and J-wire threaded, trocar catheter removed. Skin was incised and enlarged sharply. Fluoroscopic images revealed the wire to be in the superior vena cava. Stab incision was made over the left chest. Using a tunneling device, pre-curved AngioDynamics cuffed-tunneled hemodialysis catheter tunneled between the two incisions, placed in the fabric cuff beneath the skin exit site. Catheter was secured with 2 interrupted sutures of 3-0 nylon and sterile dressings applied. Small and medium size dilators were placed over the J-wire into the internal jugular vein under fluoroscopic visualization. Dilator and peel-away sheath placed over the J-wire into the superior vena cava and dilator and J-wire removed. Catheter was placed through the Peel-Away sheath. Peel-Away sheath removed. Platysma was approximated with 4-0 Monocryl, skin with subdermal 4-0 Monocryl and [place] glue. Sterile dressing was applied. Each port aspirated blood and flushed with saline solution and flushed with heparinized saline solution with 1000 units heparin per mL indicating volume of the port. Fluoroscopic images revealed good line placement. Job ID: [id number]
[2018-04-11 23:21] LABS: Hemoglobin 12.3 g/dL (12.0-16.0); Platelet Count 160 thou/uL (130-400)
[2018-04-12 00:25] LABS: HBSAg Index 0.18 S/CO (0-0.99); Hep B Surf Ag Non-Reactive S/CO (NonReactive)
[2018-04-12] MEDS: hydrALAZINE 20 MG/ML VIAL SLOW IVP PRN (03:46)
[2018-04-12] MEDS: Levothyroxine 150 MCG TAB PO SCH (05:41)
[2018-04-12 07:02] LABS: Anion Gap 19 mmol/L (10-20); BUN (Urea Nitrogen) 38 mg/dL (9.8-20.1); Calc. Creatinine Clearance 7 mL/min (70-130); Calcium 7.9 mg/dL (7.8-10.44); Carbon Dioxide 22 mmol/L (23-31); Chloride 102 mmol/L (98-107); Estimated GFR-MDRD 6; Glucose 205 mg/dL (83-110); Potassium 3.7 mmol/L (3.5-5.1); Sodium 139 mmol/L (136-145)
[2018-04-12] MEDS: Famotidine/PF 20 mg/2ml Vial SLOW IVP SCH (08:37)
[2018-04-12] MEDS ORDERED: Heparin 10,000 UNITS/ 10 ML VIAL ONE (09:00)
[2018-04-12] MEDS ORDERED: Aspirin 300 MG Suppository PR SCH (09:00)
[2018-04-12] MEDS: Docusate 100 MG CAP PO SCH (09:23)
[2018-04-12] MEDS: Insulin Glargine 4 UNITS in Pre-Filled Syringe 1 EACH SC SCH (09:23)
[2018-04-12] MEDS: Fish Oil 1,000 MG CAP PO SCH ×2 (09:23→20:49)
--- NOTE | 2018-04-12 09:35 | PDOC.CTH ---
Cardiology Progress Note - Subjective The pt seen and examined. No overnight events. No cardiac complaints. Per family, the pt is more alerted today. - Objective Vital Signs Temp Pulse Resp BP BP Pulse Ox 04/12/18 08:00 99.4 F 82 20 170/73 H 93 L 04/12/18 05:40 70 153/68 H 04/12/18 04:00 100.4 F H 67 19 195/84 H 97 04/12/18 00:00 98.0 F 65 19 156/72 H 97 Admit Weight 145 lb Weight 145 lb 8.081 oz 04/11/18 04/12/18 04/13/18 06:59 06:59 06:59 Intake Total 800 Output Total 400 100 Balance 400 -100 - Physical Examination Lungs: CTA (diminished at bases) Heart: RRR Abdomen: soft Extremities: other: (edema to BLE.) - Telemetry Telemetry Rhythm: SR - Labs Result Diagrams: 04/11/18 23:13 04/12/18 06:35 Troponin/CKMB CK-MB (CK-2) 7.3 ng/mL (0-6.6) H* 04/06/18 08:49 Troponin I 0.059 ng/mL (< 0.028) H 04/06/18 14:42 - Assessment/Plan 1. Paroxysmal afib with RVR - Remains in SR since 0800 on 04/11/2018; Not on Amiodarone at this moment. Heparin drip is off for now and on ASA MS 300mg qd. Cont. to monitor on tele 2. Hx of Bradycardia - stable with no BBlocker or antiarrhythmics med; 3. Altered mental status - stable per family 4. Labile HTN - cont. to monitor 5. ESRD with PD and HD with Lt tunnel cath - managed by nephrology service 6. Recent acute CVA 7. Possible SZ - 8. DM type 2 - 9. Chronic Anemia - stable MAR reviewed * NPO * DNAR Review of Systems - Review of Systems Constitutional: reports: weakness EENTM: reports: no symptoms reported Respiratory: reports: no symptoms reported Cardiac (ROS): reports: no symptoms reported ABD/GI: reports: no symptoms reported : reports: no symptoms reported
[2018-04-12] MEDS: Ampicillin/Sulbactam 1.5 GM in Sodium Chloride 0.9% 100 ML IVPB SCH (10:56)
--- NOTE | 2018-04-12 11:37 | PRG ---
DATE OF SERVICE: 04/12/2018 SUBJECTIVE: The patient is awake, alert, doing well today. OBJECTIVE: VITAL SIGNS: Temperature 99.4 with a T-max of 100.4, pulse 82, respirations 20, O2 saturation 93% on 2 L nasal cannula, and blood pressure 170/73. GENERAL: She is awake, alert, no distress. HEENT: Unremarkable. NECK: No JVD. LUNGS: Fairly clear without wheezing or rhonchi. CARDIAC: S1, S2 regular. ABDOMEN: Soft. EXTREMITIES: No edema. LABORATORY DATA: Sodium 139, potassium 3.7, BUN 38, creatinine 6.6, glucose 205. ASSESSMENT: 1. Acute hypoxic respiratory failure, which is improved, but still requiring low-flow nasal cannula. 2. End-stage renal disease, requiring peritoneal dialysis. 3. Asterixis. 4. Encephalopathy, which is slowly improving. 5. Acute on chronic diastolic heart failure. PLAN: She is continuing care with peritoneal dialysis, IV antibiotics, and low-flow oxygen. I do not see any changes that need to be made to this regimen today. Pulmonary will continue to follow. Job ID: [id number]
[2018-04-12] MEDS: HumaLOG 300 UNITS/3 ML VIAL SC PRN (12:46)
--- NOTE | 2018-04-12 12:58 | PDOC.PN ---
- Subjective Encounter Start Date: 04/12/18 Encounter Start Time: 12:57 Ms. Rivers was seen today in follow-up of acute CVA and metabolic encephalopathy. She is much more alert this afternoon. Her tells me she started becoming more alert last night. - Objective Resuscitation Status - Order Detail: 04/06/18 11:53 Resuscitation Status Routine Resuscitation Status: DNAR: NO Resuscitation Discussed with: d/w POA at bedside MAR Reviewed: Yes Vital Signs & Weight: Vital Signs (12 hours) Temp Pulse Resp BP BP Pulse Ox 04/12/18 12:00 99.1 F 81 20 178/78 H 97 04/12/18 08:00 99.4 F 82 20 170/73 H 93 L 04/12/18 05:40 70 153/68 H 04/12/18 04:00 100.4 F H 67 19 195/84 H 97 Weight Admit Weight 145 lb Weight 145 lb 8.081 oz Most Recent Monitor Data Heart Rate from ECG 67 NIBP 154/78 NIBP BP-Mean 103 Respiration from ECG 21 SpO2 99 I&O: 04/11/18 04/12/18 04/13/18 06:59 06:59 06:59 Intake Total 800 Output Total 400 100 Balance 400 -100 Result Diagrams: 04/11/18 23:13 04/12/18 06:35 Additional Labs: Accuchecks 04/12/18 04/12/18 04/12/18 12:32 05:46 00:05 POC Glucose 220 H 159 H 67 L 04/11/18 17:01 POC Glucose 251 H Phys Exam - Physical Examination HEENT: PERRLA + rhonchi bilaterally Cardiovascular: RRR, no significant murmur, no rub, irregular Gastrointestinal: soft, non-tender, no distention Musculoskeletal: pulses present, edema present Dx/Plan (1) Acute CVA (cerebrovascular accident) Code(s): I63.9 - CEREBRAL INFARCTION, UNSPECIFIED Status: Acute Comment: embolic cva (2) Metabolic encephalopathy Code(s): G93.41 - METABOLIC ENCEPHALOPATHY Status: Acute (3) DM type 2 (diabetes mellitus, type 2) Status: Chronic Qualifiers: Diabetes mellitus exterminator insulin use: with exterminator use Diabetes mellitus complication status: with kidney complications Diabetes mellitus complication detail: with chronic kidney disease Chronic kidney disease stage : on chronic dialysis Qualified Code(s): E11.22 - Type 2 diabetes mellitus with diabetic chronic kidney disease; N18.6 - End stage renal disease; Z79.4 - alf (current) use of insulin; Z99.2 - Dependence on renal dialysis (4) ESRD (end stage renal disease) on dialysis Code(s): N18.6 - END STAGE RENAL DISEASE; Z99.2 - DEPENDENCE ON RENAL DIALYSIS Status: Chronic Comment: on PD (5) HTN (hypertension) Code(s): I10 - ESSENTIAL (PRIMARY) HYPERTENSION Status: Chronic Qualifiers: Hypertension type: essential hypertension Qualified Code(s): I10 - Essential (primary) hypertension (6) Cerebral amyloid angiopathy Code(s): E85.4 - ORGAN-LIMITED AMYLOIDOSIS; I68.0 - CEREBRAL AMYLOID ANGIOPATHY Status: Suspected Comment: based on imaging (7) Bradycardia Code(s): R00.1 - BRADYCARDIA, UNSPECIFIED Status: Resolved Comment: off dopamine and dobutamine - Plan * Acute CVA- continue Heparin drip for now, and will change aspirin back to p.o. , and lower the dose to 81 mg, since she is on the heparin drip * Continue statin, now that she is tolerating p.o. * Metabolic encephalopathy- improved * ESRD- she tolerated HD , in place of PD- will continue with HD as per Fire Inspector * HTN- blood pressure is better * Dysphagia- she was evaluated by speech therapy, and been cleared for nectar thick liquids * If she continues to tolerate p.o. can change the heparin drip to an oral anticoagulant, likely next week, if she proceeds with AV fistula placement.
[2018-04-12] MEDS ORDERED: Docusate Sodium 10 MG/1 ML Oral Suspension PO PRN (13:07)
--- NOTE | 2018-04-12 13:08 | PRG ---
DATE OF SERVICE: SUBJECTIVE: A 78-year-old female, being seen for end-stage renal disease. The patient tolerated hemodialysis well and can verbalize. Denies any nausea, vomiting, or chest pain. OBJECTIVE: CONSTITUTIONAL: The patient is awake and alert. VITAL SIGNS: Afebrile, pulse 82, breathing 16, and blood pressure 153/68. GENERAL APPEARANCE AND MENTAL STATUS: Fair. HEAD/NECK: Normocephalic. Atraumatic. EYES: EOMI. No deformity. EARS: Clear. No ulcers. NOSE: Intact. No lesions. MOUTH: Clear. No discharge. THROAT: Clear. No exudate. LUNGS: Clear. No crackles. CARDIAC: S1, S2. No rub. ABDOMEN: Benign. Bowel sounds positive. GENITALIA/RECTUM: Galvez absent. BACK/EXTREMITIES: Edema 0+. NEUROLOGICAL: Alert and motor intact. SKIN: LYMPHATICS: LABORATORY DATA: Showed hemoglobin 12.3. BUN has decreased to 38. ASSESSMENT: 1. End-stage renal disease, stable. 2. Hypertension, stable. 3. Anemia, stable. 4. Medications based on GFR appropriate. We will plan hemodialysis today. Job ID: [id number]
[2018-04-12] MEDS ORDERED: Docusate 100 MG CAP PO PRN (13:13)
[2018-04-12] MEDS ORDERED: levETIRAcetam 500 MG TAB PO SCH (21:00)
[2018-04-12] MEDS ORDERED: Amiodarone 200 MG TAB PO SCH (21:00)
[2018-04-12] MEDS ORDERED: levETIRAcetam 500 mg/5 ml Oral Solution PO SCH (21:00)
[2018-04-13] MEDS: Ampicillin/Sulbactam 1.5 GM in Sodium Chloride 0.9% 100 ML IVPB SCH (00:10)
[2018-04-13 00:44] LABS: #Eosinphils 0.1 thou/uL (0.0-0.7); #Lymphocytes 0.4 thou/uL (1.20-3.40); #Monocytes 0.7 thou/uL (0.11-0.59); #Neutrophils 8.9 thou/uL (1.40-6.50); %Basophils 0.1 % (0.0-1.0); %Eosinophils 0.8 % (0.0-10.0); %Lymphocytes 4.1 % (21.0-51.0); %Monocytes 7.3 % (0.0-10.0); %Neutrophils 87.7 % (42.0-75.0); Hemoglobin 10.6 g/dL (12.0-16.0); Mean Corpuscular HGB CONC 31.7 g/dL (32.0-36.0); Mean Corpuscular Hemoglobin 31.7 pg (27.0-31.0); Mean Platelet Volume 8.9 fL (7.4-10.4); Platelet Count 155 thou/uL (130-400); RBC Distribution Width 13.5 % (11.5-14.5); Red Blood Cell (RBC) Count 3.35 mill/uL (4.20-5.40); White Blood Cell (WBC) Count 10.1 thou/uL (4.8-10.8)
[2018-04-13 01:04] LABS: Troponin I 0.275 ng/mL (< 0.028)
[2018-04-13] MEDS ORDERED: Protamine Sulfate 50 MG/5 ML VIAL SLOW IVP SCH (02:30)
--- NOTE | 2018-04-13 06:39 | PDOC.EVN ---
Event Note - Event Note Event Note: got more obtunded overnight CT brain wo contrast shows brainstem hemorrhage b/l On exam: unresponsive with vacant stare, does not follow verbal stimuli has mild decerebration in left UE D/w in person on floor, showed him CT images/bleed D/w son in law Dr.Howard Colón gen surgeon in [place] and gave him an update about poor prognosis Family have decided for comfort care May get hospice eval if she lives this morning 5mg protamine given, heparin drip discontinued No labs or active treatment except for comfort.
--- NOTE | 2018-04-13 07:44 | CT ---
HEAD CT NONCONTRAST: Date: 04/13/18 COMPARISON: 04/09/18. INDICATION: CVA. History of aphasia, hemineglect, and slurred speech. FINDINGS: Ventricular system is prominent, stable. There is moderate chronic microvascular ischemic disease of the cerebral white matter, which is stable. There is redemonstration of hypoattenuating foci of the l eft cerebellar hemisphere compatible with lacunar infarctions. Since the prior exam, there has been development of hyperdensity of the valencia. IMPRESSION: 1. Interval development of pontine hyperdensity. This may relate to hemorrhagic infarction. 2. Redemonstration of chronic ischemic disease and lacunar infarctions. Notification of findings placed to the ordering hospitalist physician, via telephone at 0126 hours, 0 04/13/18. CODE CR. POS: [facility]
[2018-04-13] MEDS: Famotidine/PF 20 mg/2ml Vial SLOW IVP SCH (08:14)
--- NOTE | 2018-04-13 08:45 | RAD ---
CHEST 1 VIEW: Date: 04/13/18 HISTORY: Cardiomegaly. COMPARISON: Radiograph prior day. FINDINGS: Right IJ central venous catheter is similar. Dialysis catheter is similar. Heart size is enlarged. No pneumothorax. There appears to be a right subcoracoid shoulder dislocation. IMPRESSION: Right subcoracoid shoulder dislocation, otherwise similar examination of the chest. POS: [facility]
[2018-04-13] MEDS ORDERED: Aspirin 81 mg Enteric Coated Tablet PO SCH (09:00)
--- NOTE | 2018-04-13 11:07 | PRG ---
DATE OF SERVICE: 04/13/2018 SUBJECTIVE: This patient developed altered mental status. This morning, was taken to CTs, and found to have a significant bleed in the area of the brainstem. Family is now moving toward hospice care. OBJECTIVE: VITAL SIGNS: Temperature is 99.9, pulse 80, respirations 20, and O2 saturation 98% on 2 L. GENERAL: She is obtunded and will not respond to deep painful stimuli. HEENT: Unremarkable. NECK: No JVD. LUNGS: She has coarse breath sounds from upper airway instability. ABDOMEN: Soft. EXTREMITIES: No edema. LABORATORY DATA: Labs showed white blood cell count of 10, hematocrit 33, and platelet count 155. No chemistry was done today. ASSESSMENT: 1. Brainstem bleed. 2. Compromised respiratory status acute respiratory failure secondary to inability to control secretions. 3. End-stage renal disease. 4. Encephalopathy. PLAN: I agree with comfort care and I think that home hospice is appropriate. No further Pulmonary recommendations at this time. Job ID: [id number]
[2018-04-13 12:15] VITALS: BP 97/46; TEMP 100.4
--- NOTE | 2018-04-13 12:46 | PDOC.PN ---
- Subjective Encounter Start Date: 04/13/18 Encounter Start Time: 10:45 Patient was seen today in follow-up of acute CVA. The event of this morning were noted. She become less responsive, and allen red was called. Stat CT scan revealed a bleed in the valencia. She has remained unresponsive and has marginal breathing. - Objective Resuscitation Status - Order Detail: 04/06/18 11:53 Resuscitation Status Routine Resuscitation Status: DNAR: NO Resuscitation Discussed with: d/w POA at bedside MAR Reviewed: Yes Vital Signs & Weight: Vital Signs (12 hours) Temp Pulse Resp BP Pulse Ox 04/13/18 12:00 100.4 F H 71 14 97/46 L 97 04/13/18 08:14 98 04/13/18 07:54 82 22 H 98 04/13/18 05:38 99.9 F H 85 20 137/63 97 Weight Admit Weight 145 lb Weight 145 lb 8.081 oz Most Recent Monitor Data Heart Rate from ECG 67 NIBP 154/78 NIBP BP-Mean 103 Respiration from ECG 21 SpO2 99 I&O: 04/12/18 04/13/18 04/14/18 06:59 06:59 06:59 Intake Total 378.8 Output Total 100 1650 Balance -100 -1271.2 Result Diagrams: 04/13/18 00:23 04/12/18 06:35 Additional Labs: Accuchecks 04/12/18 04/12/18 04/12/18 23:57 20:26 18:13 POC Glucose 295 H 258 H 139 H Phys Exam - Physical Examination + rhonchi bilaterally, and some rales at the bases Cardiovascular: no significant murmur, no rub, irregular Gastrointestinal: soft, non-tender, positive bowel sounds Musculoskeletal: edema present Dx/Plan (1) Acute CVA (cerebrovascular accident) Code(s): I63.9 - CEREBRAL INFARCTION, UNSPECIFIED Status: Acute Comment: embolic cva (2) Metabolic encephalopathy Code(s): G93.41 - METABOLIC ENCEPHALOPATHY Status: Acute (3) DM type 2 (diabetes mellitus, type 2) Status: Chronic Qualifiers: Diabetes mellitus fpc insulin 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 Diabetes mellitus complication status: with kidney complications Diabetes mellitus complication detail: with chronic kidney disease Chronic kidney disease stage : on chronic dialysis Qualified Code(s): E11.22 - Type 2 diabetes mellitus with diabetic chronic kidney disease; N18.6 - End stage renal disease; Z79.4 - penitentiary (current) use of insulin; Z99.2 - Dependence on renal dialysis (4) ESRD (end stage renal disease) on dialysis Code(s): N18.6 - END STAGE RENAL DISEASE; Z99.2 - DEPENDENCE ON RENAL DIALYSIS Status: Chronic Comment: on PD (5) HTN (hypertension) Code(s): I10 - ESSENTIAL (PRIMARY) HYPERTENSION Status: Chronic Qualifiers: Hypertension type: essential hypertension Qualified Code(s): I10 - Essential (primary) hypertension (6) Cerebral amyloid angiopathy Code(s): E85.4 - ORGAN-LIMITED AMYLOIDOSIS; I68.0 - CEREBRAL AMYLOID ANGIOPATHY Status: Suspected Comment: based on imaging (7) Bradycardia Code(s): R00.1 - BRADYCARDIA, UNSPECIFIED Status: Resolved Comment: off dopamine and dobutamine - Plan * Acute CVA- she unfortunately developed a hemorrhage into the valencia * Agree with change care to Hospice, and I anticipate a rapid decline.
--- NOTE | 2018-04-14 12:58 | DIS ---
DATE OF ADMISSION: 04/06/2018 DATE OF DISCHARGE: 04/13/2018 DISCHARGE DISPOSITION: Inpatient hospice. DISCHARGE DIAGNOSES: 1. Acute cerebrovascular accident. 2. Hemorrhagic conversion of the infarct. 3. Hypertension. 4. End-stage renal disease, on peritoneal dialysis. 5. Diabetes mellitus type 2. 6. Dyslipidemia. 7. Hypertension. 8. Paroxysmal atrial fibrillation. 9. Hypothyroidism. DISCHARGE MEDICATIONS: None. PROCEDURES AND MAJOR TESTS PERFORMED: Include a CT scan of the brain showing no intracranial abnormalities and this was on 04/06/2018. The patient had an MRI of the brain on 04/06/2018, demonstrating findings suggestive of an embolic phenomena with small acute infarcts in the left frontal lion radiata, right parietal white matter as well as the left cerebellar hemisphere compatible with acute infarction. There were no cortical infarctions seen. There was diffuse cerebral and cerebellar volume loss and there were findings compatible with amyloid angiopathy. The patient also had an MR angiogram showing no focal stenosis and there was some sinus disease involving the left sphenoid sinus. The patient had a repeat CT scan on 04/09/2018, this showed no intracranial hemorrhage. There was some evidence of some prominent small-vessel disease. The patient had venous markings for vein mapping for dialysis access. The patient had an echocardiogram and this demonstrated an ejection fraction estimated at 55% to 60%. There was some concentric left ventricular hypertrophy. There was E to A flow reversal suggestive of diastolic dysfunction. The patient had placement of a Trialysis catheter for dialysis. The patient had a repeat CT scan on 12/22/2017, this demonstrated interval development of pontine hyperdensity which may relate to hemorrhagic infarction. There is re-demonstration of the chronic ischemic disease and lacunar infarcts. CODE STATUS: DNAR. ALLERGIES: 1. IODINE. 2. SHELLFISH. HOSPITAL COURSE: Ms. Rivers is a very pleasant 78-year-old female who was admitted to the hospital after her family noted that she was unresponsive and very difficult to arouse. He also noticed that she had a low heart rate. He brought her to the emergency room and she was admitted and placed on dopamine and dobutamine as well as had a transcutaneous pacer placed. She was admitted to the ICU. A CT scan initially did not show an infarct. However, an MRI and MR angiogram were obtained showing multiple embolic infarcts as previously described. She was evaluated by Neurology as well as Cardiology initially due to her bradycardia. Eventually, she was able to be weaned off the dobutamine and dopamine and moved out of the ICU. She was seen by Critical Care and Pulmonary Medicine due to her stay in the ICU. It was felt that the bradycardia was likely a result of the neurologic insult. Due to the infarct nature of the stroke, she was placed on a heparin drip. She had intermittent improvement in her mental status and efforts were initiated to consider transitioning her over from peritoneal to hemodialysis, which had been a consideration prior to her admission to the hospital. However, during her hospital stay, she developed an another episode of lethargy. A Code Green was called and a repeat CT scan was obtained. This was negative for any acute change on April 09, and shortly after obtaining the CT scan, her mental status improved. However, a few days later, she had a repeat decline in her mental status and an attempt was made to consider transitioning her from peritoneal to hemodialysis in the event that there was some metabolic encephalopathy complicating her mental status. She actually cleared up after the Trialysis catheter was placed before she even underwent dialysis. She underwent 2 sessions of hemodialysis and seemed to be improving. However, on April 13, early in the morning, she developed another episode of decreased responsiveness. Another code was called and she was taken emergently for CT scan. At this time, it was found that she had developed a hemorrhagic infarct in the pontine or in the valencia, and she did not recover from this. She was left extremely lethargic with apneic breathing, and the family decided to discontinue active care and a hospice consult was obtained and she was transferred to inpatient hospice on 04/13/2018. Job ID: [id number]
--- NOTE | 2018-04-14 14:13 | EEG ---
Referring Physician: VIBHA EEG # [id number] TEST TYPE: ROUTINE PORTABLE INPATIENT REPORT: AN EEG USING THE [employer] TEN-TWENTY SYSTEM OF ELECTRODE PLACEMENT WAS PERFORMED. The tracing opened with severe EMG artifact. She eventually relaxed and the background activity appeared to be 8 hertz occipitally. Photic stimulation was unremarkable. No epileptiform features were seen. IMPRESSION: THIS IS A LIMITED STUDY, BUT APPEARS TO BE NORMAL FOR AGE. Electronic Warfare Officer: JUAN CARLOS Chief Librarian Extension Department: EEG.TAYLOR LOONEY
[2018-04-17] MEDS ORDERED: cloNIDine 0.2mg/24 Hour PATCH TD SCH (09:00)
== END 2018-04-13 13:28 | disposition hospice, inpatient (51) | DRG 64 ==
LOC: ERS 08:40 → CCU 11:13 → 2SE 04-08 13:10
PROVIDERS: ADMIT Internal Medicine; ATTEND Internal Medicine
PROC: 3E1M39Z Irrigation of Peritoneal Cavity using Dialysate, Percutaneous Approach (ICD-10-PCS; 2018-04-06)
PROC: 3E1M39Z Irrigation of Peritoneal Cavity using Dialysate, Percutaneous Approach (ICD-10-PCS; 2018-04-07)
PROC: 3E1M39Z Irrigation of Peritoneal Cavity using Dialysate, Percutaneous Approach (ICD-10-PCS; 2018-04-08)
PROC: 3E1M39Z Irrigation of Peritoneal Cavity using Dialysate, Percutaneous Approach (ICD-10-PCS; 2018-04-09)
PROC: 3E1M39Z Irrigation of Peritoneal Cavity using Dialysate, Percutaneous Approach (ICD-10-PCS; 2018-04-10)
PROC: 0JH63XZ Insertion of Tunneled Vascular Access Device into Chest Subcutaneous Tissue and Fascia, Percutaneous Approach (ICD-10-PCS; principal; 2018-04-11)
PROC: 05HN33Z Insertion of Infusion Device into Left Internal Jugular Vein, Percutaneous Approach (ICD-10-PCS; 2018-04-11)
PROC: B544ZZA Ultrasonography of Left Jugular Veins, Guidance (ICD-10-PCS; 2018-04-11)
PROC: 5A1D70Z Performance of Urinary Filtration, Intermittent, Less than 6 Hours Per Day (ICD-10-PCS; 2018-04-11)
PROC: 5A1D70Z Performance of Urinary Filtration, Intermittent, Less than 6 Hours Per Day (ICD-10-PCS; 2018-04-12)
DX: I63.9 Cerebral infarction, unspecified (principal); N18.6 End stage renal disease; G93.41 Metabolic encephalopathy; J96.01 Acute respiratory failure with hypoxia; I50.33 Acute on chronic diastolic (congestive) heart failure; I61.3 Nontraumatic intracerebral hemorrhage in brain stem; I82.611 Acute embolism and thrombosis of superficial veins of right upper extremity; I24.8 Other forms of acute ischemic heart disease; E85.4 Organ-limited amyloidosis; N30.00 Acute cystitis without hematuria; I13.2 Hypertensive heart and chronic kidney disease with heart failure and with stage 5 chronic kidney disease, or end stage renal disease; Z51.5 Encounter for palliative care; Z99.2 Dependence on renal dialysis; R00.1 Bradycardia, unspecified; I48.0 Paroxysmal atrial fibrillation; E11.22 Type 2 diabetes mellitus with diabetic chronic kidney disease; Z91.15 Patient's noncompliance with renal dialysis; E78.5 Hyperlipidemia, unspecified; E03.9 Hypothyroidism, unspecified; Z66 Do not resuscitate; R56.9 Unspecified convulsions; D64.9 Anemia, unspecified; E11.65 Type 2 diabetes mellitus with hyperglycemia; Z79.4 Long term (current) use of insulin; Z79.82 Long term (current) use of aspirin; Z86.73 Personal history of transient ischemic attack (TIA), and cerebral infarction without residual deficits; Z90.49 Acquired absence of other specified parts of digestive tract
CPT/HCPCS: 36415; 36416; 36556; 51703; 70450; 70544; 70551; 71045; 80048; 80053; 80061; 80306; 80307; 81003; 81015; 82140; 82550; 82553; 82805; 83605; 83690; 83735; 83880; 84100; 84146; 84439; 84443; 84481; 84484; 85014; 85018; 85025; 85049; 85610; 85730; 86038; 86225; 87040; 87070; 87077; 87086; 87186; 87205; 87340; 89051; 90945; 93005; 93306; 93970; 94640; 94760; 95816; 95819; 96361; 96365; 96367; 96368; 96375; 96376; C1752; C1769; G0257; G0365; G8996-GN-CJ; G8997-GN-CI; J0295; J0360; J0461; J0670; J1160; J1250; J1265; J1610; J1644; J1650; J1953; J1956; J2001; J2185; J2250; J2310; J2704; J2720; J2920; J3010; J7050; J7506; J7620; S0028